=== PATIENT | male | born 1970 | race Hispanic/Latino ===

== ENCOUNTER 2018-06-14 01:35 | Inpatient (IN) | payer MEDICAID, OTHER ==
[2018-06-14] MEDS ORDERED: Sodium Chloride 0.9% 1,000 ML IV STA ×2 (01:46)
--- NOTE | 2018-06-14 02:01 | ED PDOC ---
Arrival/HPI - General Chief Complaint: Weakness/Neurological Deficit Time Seen by Provider: 06/14/18 01:46 Historian: Patient - History of Present Illness Narrative History of Present Illness (Text): 06/14/18 01:57 48 year old male, whose past medical history includes a diabetes and a pacemaker , who presents to the Emergency department complaining of an episode of numbness in the left arm today. Patient notes associated nausea, headache, and diarrhea. Patient denies any fevers, chills, chest pain, shortness of breath, abdominal pain, vomiting, back pain, neck pain, or any other complaint. Time/Duration: Other (today) Symptom Onset: Sudden Symptom Course: Unchanged Activities at Onset: Light Context: Home Past Medical History - Provider Review Nursing Documentation Reviewed: Yes - Psychiatric Hx Substance Use: No - Anesthesia Hx Anesthesia: Yes Family/Social History - Physician Review Nursing Documentation Reviewed: Yes Family/Social History: Unknown Family HX Smoking Status: Never Smoked Hx Alcohol Use: No Hx Substance Use: No Allergies/Home Meds Allergies/Adverse Reactions: Allergies No Known Allergies Allergy (Verified 06/14/18 01:45) Home Medications: Home Meds Medication Instructions Recorded Confirmed No Known Home Med 06/14/18 06/14/18 Review of Systems - Physician Review All systems were reviewed & negative as marked: Yes - Review of Systems Constitutional: Normal Eyes: Normal ENT: Normal Respiratory: Normal. absent: SOB, Cough Cardiovascular: Normal. absent: Chest Pain Gastrointestinal: Nausea. absent: Abdominal Pain, Diarrhea, Vomiting Genitourinary Male: Normal. absent: Dysuria, Frequency Musculoskeletal: Other (left arm numbness). absent: Back Pain, Neck Pain Skin: Normal. absent: Rash Neurological: Normal. absent: Headache, Dizziness Endocrine: Normal Hemo/Lymphatic: Normal Psychiatric: Normal Physical Exam - Physical Exam Narrative Physical Exam (Text): 06/14/18 02:00 Gen: VS reviewed, alert, well developed, well nourished, nontoxic, mild distress. ENT: normal pharynx. Eye: EOMI, PERRL. Neck: no JVD, supple, no adenopathy. CV: regular rate, regular rhythm, no rubs, no murmur, no gallops, S1, S2, pulses equal and strong. Pulm: no distress, clear to auscultation, no wheeze, no rhonchi, breath sounds equal, no rales. Abd: soft, nontender, no guarding, no rebound, no rigidity, normal bowel sounds. Ext: no edema. Skin: good color, no rash, no cyanosis. Psych: responds appropriately to questions, normal affect. Neuro: oriented x 3, CN2-12 intact grossly, motor intact, sensation intact. Vital Signs Reviewed: Yes Vital Signs Temp Pulse Resp BP Pulse Ox 06/14/18 02:51 88 12 155/81 H 100 06/14/18 01:44 98 F 87 16 156/81 H 99 Temperature: Afebrile Blood Pressure: Hypertensive Pulse: Regular Respiratory Rate: Normal Appearance: Positive for: Well-Appearing, Non-Toxic, Comfortable Pain Distress: None Mental Status: Positive for: Alert and Oriented X 3 Finger Stick Blood Glucose: 390 Medical Decision Making ED Course and Treatment: 06/14/18 02:01 Impression: 48 year old male presents to the ED complaining of left arm numbness today. Plan: -- EKG -- Labs -- Troponin -- CXR -- Sodium Chloride -- UA -- Reassess and disposition Progress Notes: 06/14/18 03:16 CT head reviewed, shows: Impression: No evidence of an acute intracranial hemorrhage, midline shift or mass effect is identified.Changes of an acute infarct may not be visible on CT for up to 24 to 48 hours. If this is of clinical concern, a follow up examination and/or MRI may be of benefit. 06/14/18 03:33 patient presents with multiple nonspecific complaints including transient numbness in the left arm without associated weakness. onset of left arm numbness was approx 7pm last night and only lasted 4-5 minutes. there were associated neuro deficits such as facial numbness or speech disturbance, or extremity weakness. As the patient had a delayed presentation to the ED, he was not a candidate for thrombolysis. patient has not been on diabetic medications for 2 months as the medications "make him feel bad". glucose is moderately elevated without metabolic disturbance. clinical presentation is not consistent with DKA. Will admit the patient to the hospital for glycemic control and neurologic workup. 06/14/18 04:30 admit accepted by hospitalist, dr. trivedi - Lab Interpretations Lab Results: 06/14/18 01:50 06/14/18 01:50 Lab Results 06/14/18 03:34: POC Glucose (mg/dL) 238 H 06/14/18 02:41: POC Glucose (mg/dL) 378 H 06/14/18 01:50: PT 10.4, INR 0.91, APTT 28.9 06/14/18 01:50: Sodium 135, Potassium 4.1, Chloride 98, Carbon Dioxide 25, Anion Gap 17, BUN 18, Creatinine 0.7 L, Est GFR ( Amer) > 60, Est GFR ( Non-Af Amer) > 60, Random Glucose 395 H*, Calcium 9.0, Magnesium 1.8, Total Bilirubin 0.6, AST 17, ALT 28, Alkaline Phosphatase 88, Troponin I < 0.01, Total Protein 6.9, Albumin 3.8, Globulin 3.1, Albumin/Globulin Ratio 1.3 06/14/18 01:50: WBC 12.6 H, RBC 4.83, Hgb 13.6 L, Hct 37.1 L, MCV 76.8 L, MCH 28.2, MCHC 36.7, RDW 12.7, Plt Count 195, MPV 11.0, Gran % 80.8 H, Lymph % (Auto ) 14.2 L, [place] % (Auto) 4.5, Eos % (Auto) 0.3 L, Baso % (Auto) 0.2, Gran # 10.17 H, Lymph # (Auto) 1.8, [place] # (Auto) 0.6, Eos # (Auto) 0.0, Baso # (Auto) 0.02 06/14/18 01:45: POC Glucose (mg/dL) 390 H - RAD Interpretation Radiology Orders: 06/14/18 01:48 CHEST PORTABLE [RAD] Stat 06/14/18 02:03 HEAD W/O CONTRAST [CT] Stat - EKG Interpretation EKG Interpretation (Text): 06/14/18 02:25 0147: sinus rhythm at 87 bpm, 100% electronic ventricular pacemaker Interpreted by ED Physician: Yes - Medication Orders Current Medication Orders: Discontinued Medications Acetaminophen (Tylenol 325mg Tab) 975 mg PO STAT STA Stop: 06/14/18 03:32 Aspirin (Ecotrin) 81 mg PO STAT STA Stop: 06/14/18 03:33 Sodium Chloride (Sodium Chloride 0.9%) 1,000 mls @ 999 mls/hr IV .Q1H1M STA Stop: 06/14/18 02:46 Last Admin: 06/14/18 01:50 Dose: 999 mls/hr eMAR Start Stop Document 06/14/18 01:50 JOL (Rec: 06/14/18 02:40 [id number] [id number]) Intravenous Solution Start Date 06/14/18 Start Time 01:50 End Date 06/14/18 End time 02:51 Total Infusion Time 61 Sodium Chloride (Sodium Chloride 0.9%) 1,000 mls @ 999 mls/hr IV .Q1H1M STA Stop: 06/14/18 02:46 Last Admin: 06/14/18 02:40 Dose: 999 mls/hr eMAR Start Stop Document 06/14/18 02:40 JOL (Rec: 06/14/18 02:40 [email or web address] [id number]) Intravenous Solution Start Date 06/14/18 Start Time 02:40 End Date 06/14/18 End time 03:41 Total Infusion Time 61 Insulin Human Regular (Humulin R) 10 units IVP STAT STA Stop: 06/14/18 02:33 Last Admin: 06/14/18 02:43 Dose: 8 unit MAR Blood Glucose Document 06/14/18 02:43 JOL (Rec: 06/14/18 02:43 JOL [id number]) Blood Glucose Finger Stick Blood Glucose (70-120) 378 IVP Administration Document 06/14/18 02:43 JOL (Rec: 06/14/18 02:43 JOL [id number]) Charges for Administration # of IVP Administrations 1 NIHSS Stroke Scale 3 - Date/Time Evaluation Performed Date Performed: 06/14/18 Time Performed: 03:33 When Was NIHSS Performed: Baseline - How Severe is the Stroke Level of Consciousness: 0=Alert LOC to Questions: 0=Both comments correct LOC to commands: 0=Obeys both correctly Best Gaze: 0=Normal Visual: 0=No visual loss Facial: 0=Normal Motor Arm - Left: 0=No drift Motor Arm - Right: 0=No drift Motor Leg - Left: 0=No drift Motor Leg - Right: 0=No drift Limb Ataxia: 0=Absent Sensory: 0=Normal Best Language: 0=No aphasia Dysarthia: 0=Normal articulation Extinction & Inattention (Neglect): 0=Normal, no object Score: 0 - Scribe Statement The provider has reviewed the documentation as recorded by the Scribelia Hardy All medical record entries made by the Scribe were at my direction and personally dictated by me. I have reviewed the chart and agree that the record accurately reflects my personal performance of the history, physical exam, medical decision making, and the department course for this patient. I have also personally directed, reviewed, and agree with the discharge instructions and disposition. Disposition/Present on Arrival - Present on Arrival Any Indicators Present on Arrival: No History of DVT/PE: No History of Uncontrolled Diabetes: No Urinary Catheter: No History of Decub. Ulcer: No History Surgical Site Infection Following: None - Disposition Have Diagnosis and Disposition been Completed?: Yes Diagnosis: TIA (transient ischemic attack), Hyperglycemia Disposition: HOSPITALIZED Disposition Time: 04:30 Patient Plan: Telemetry Condition: STABLE Forms: [employer] (Cameroonian)
[2018-06-14 02:25] LABS: BASO # 0.02 K/mm3 (0.0-2.0); BASO % 0.2 % (0.0-3.0); EOS % 0.3 % (1.5-5.0); GRAN # 10.17 (1.4-6.5); GRAN % 80.8 % (50.0-68.0); HEMOGLOBIN 13.6 g/dL (14.0-18.0); LYMPH # 1.8 (1.2-3.4); LYMPH % 14.2 % (22.0-35.0); MEAN CELL VOLUME 76.8 fl (80.0-105.0); MEAN CORPUSCULAR HEMOGLOBIN 28.2 pg (25.0-35.0); MEAN CORPUSCULAR HGB CONC 36.7 g/dl (31.0-37.0); MONO # 0.6 (0.1-0.6); MONO % 4.5 % (1.0-6.0); RBC 4.83 10^6/uL (3.5-6.1); RED CELL DISTRIBUTION WIDTH 12.7 % (11.5-14.5); WHITE BLOOD COUNT 12.6 10^3/ul (4.5-11.0)
[2018-06-14 02:27] LABS: INR 0.91; PARTIAL THROMBOPLASTIN TIME 28.9 Seconds (25.1-36.5); PROTHROMBIN TIME 10.4 SECONDS (9.4-12.5)
[2018-06-14 02:30] LABS: ALB/GLOB RATIO 1.3 (1.1-1.8); ALBUMIN 3.8 g/dL (3.0-4.8); ALT/SGPT 28 U/L (7-56); AST/SGOT 17 U/L (17-59); BLOOD UREA NITROGEN 18 mg/dL (7-21); GFR NON-AFRICAN AMERICAN > 60
[2018-06-14] MEDS ORDERED: Insulin Regular 1 UNITS/0.01 ML ML IVP STA (02:32)
[2018-06-14 02:39] LABS: TROPONIN I < 0.01 ng/mL
--- NOTE | 2018-06-14 05:26 | CP.PCM.HP ---
History of Present Illness - History of Present Illness History of Present Illness: Gerardo Thorpe, PGY-1 History and Physical for Hospitalist Service CC: Numbness in L hand HPI: Mr. Solares is a 48 year old male with PMHx of diabetes, high cholesterol and pacemaker placement who presents with L hand numbness since 7 pm the night before. Patient describes frequent feelings of pins and needles in the extremities in the past, but this episode felt more pronounced and has been sustained. Patient also reports headache and mild nausea and mild L sided facial numbness. Patient reports radiation into upper arm, but denies chest pain , jaw pain, fevers, chills, or diaphoresis. Patient said lying down did not relieve pain. Patient reports he has not taken his diabetes or cholesterol medication in 3-4 months because the medications made him feel groggy and he felt better without them. Patient has not checked his sugars over that time as well. Patient reports chronic pain in his lower extremities that causes him to wear socks at all time because it is too painful to walk and have his feet touch the bare floor. Patient reports eating whatever he would like. Patient reports blurry vision which has worsened overnight. Patient has not seen an analysis intern in years and patient does not regularly see his PCP or an zyglo inspector for diabetes management. Patient reports always being thirsty and drinking lots of fluids. Patient also reports frequency of urination throughout day and night. Patient reports Patient denies sore throat, dizziness, shortness of breath, palpitations, recent travel, sick contacts. PMHx: DM not on meds, hypercholesterolemia not on meds, pacemaker placement in 08/07 at [facility] s/p bradycardia PSHx: R shoulder surgery All; NKDA Social: Quit 5 years ago. Smoked 2.5 paks per day for 30 years previously. Denies ETOH and IVDU. 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 Gaxiola ([facility]) Director Of Catering : Dr. Allan ([facility]) Present on Admission - Present on Admission Any Indicators Present on Admission: Yes History of Uncontrolled Diabetes: Yes Review of Systems - Review of Systems Review of Systems: 12 point ROS completed and negative except as described in HPI. Past Patient History - Past Social History Smoking Status: Never Smoked - PSYCHIATRIC Hx Substance Use: No - SURGICAL HISTORY Hx Surgeries: No - ANESTHESIA Hx Anesthesia: Yes Meds Allergies/Adverse Reactions: Allergies Allergy/AdvReac Type Severity Reaction Status Date / Time No Known Allergies Allergy Verified 06/14/18 01:45 Physical Exam - Constitutional Appears: Well, Non-toxic, No Acute Distress, Older Than Stated Age Additional comments: Very mild discomfort - Head Exam Head Exam: ATRAUMATIC, NORMAL INSPECTION, NORMOCEPHALIC - Eye Exam Eye Exam: EOMI, Normal appearance Pupil Exam: PERRL - ENT Exam ENT Exam: Mucous Membranes Moist, Normal Exam - Neck Exam Neck exam: Positive for: Full Rom, Normal Inspection. Negative for: Lymphadenopathy - Respiratory Exam Respiratory Exam: Clear to Auscultation Bilateral, NORMAL BREATHING PATTERN. absent: Accessory Muscle Use, Chest Wall Tenderness, Decreased Breath Sounds, Rales, Rhonchi, Wheezes, Respiratory Distress, Stridor - Cardiovascular Exam Cardiovascular Exam: RRR, +S1, +S2 Additional comments: R ventricular pacemaker in place in R upper chest - GI/Abdominal Exam GI & Abdominal Exam: Normal Bowel Sounds, Soft. absent: Distended, Guarding, Rebound, Tenderness - Extremities Exam Extremities exam: Positive for: tenderness (on feet upon palpation. No ulcers noted.). Negative for: calf tenderness, joint swelling - Back Exam Back exam: NORMAL INSPECTION. absent: CVA tenderness (L), CVA tenderness (R), muscle spasm, paraspinal tenderness, rash noted - Neurological Exam Neurological exam: Alert, Normal Gait, Oriented x3 - Psychiatric Exam Psychiatric exam: Flat Affect - Skin Skin Exam: Dry, Intact, Normal Color, Warm Results - Vital Signs Recent Vital Signs: Last Vital Signs Temp 98 F 06/14/18 01:44 Pulse 98 H 06/14/18 04:00 Resp 14 06/14/18 04:00 BP 150/72 06/14/18 04:00 Pulse Ox 99 06/14/18 04:00 - Labs Result Diagrams: 06/14/18 01:50 06/14/18 01:50 Assessment & Plan - Assessment and Plan (Free Text) Assessment: Assessment: Mr. 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 Plan: Diabetic neuropathy 2/2 Uncontrolled Diabetes and medication non-compliance f/u a1c and lipid panel 395 upon admission, 238 on POC check accu checks achs ISS low, consider increase based on a1c HHD R/O TIA CT head w/o contrast: No evidence of an acute intracranial hemorrhage, midline shift or mass effect is identified EKG: sinus rhythm at 87 bpm, electronic ventricular pacemaker Trop neg x1 Neuro checks q4h Passed nursing bedside evaluation, HHD f/u TSH f/u carotid ultrasound and echocardiogram Neurology consult placed (Dr. Juares) - recommendations appreciated f/u lipid panel ASA 81 mg PO NIHSS Leukocytosis WBC 12.6 afebrile f/u CXR and UA will continue to monitor for any source of infection f/u AM lab HTN Permissive HTN until stroke is ruled out continue to monitor Hydralazine 10 mg to be given if systolic > 160 Pacemaker placement / ? bradycardia No medications at home Placed 08/07 at [facility] f/u medical records at [facility] for etiology and further history Hypercholesterolemia F/u lipid panel Atorvastatin 20 mg PO DVT ppx SCDs Lovenox 40 mg SC GI prophylaxis not indicated Patient seen, case reviewed, and plan discussed with Dr. Coyle. Gerardo Thorpe, PGY-1
[2018-06-14 06:02] LABS: PH,URINE 6.5 (4.7-8.0); URINE BILIRUBIN NEGATIVE (NEGATIVE); URINE BLOOD TRACE-LYSED (NEGATIVE); URINE GLUCOSE (UA) >=1000 mg/dL (NEGATIVE); URINE LEUKOCYTE ESTERASE NEGATIVE Leu/uL (NEGATIVE); URINE PROTEIN 100 mg/dL (<30 mg/dL); URINE UROBILINOGEN 0.2 E.U./dL (<1 E.U./dL)
[2018-06-14 06:04] LABS: URINE APPEARANCE CLEAR (CLEAR); URINE COLOR LIGHT YELLOW (YELLOW)
[2018-06-14 06:13] LABS: URINE BACTERIA OCC (NEG); URINE EPITHELIAL CELLS 0 - 2 /hpf (0-5); URINE RBC 0 - 2 /hpf (0-2); URINE WBC 0 - 2 /hpf (0-6)
[2018-06-14 06:41] LABS: BASO # 0.02 K/mm3 (0.0-2.0); BASO % 0.2 % (0.0-3.0); EOS % 0.1 % (1.5-5.0); GRAN # 8.97 (1.4-6.5); GRAN % 83.2 % (50.0-68.0); HEMOGLOBIN 12.8 g/dL (14.0-18.0); LYMPH # 1.4 (1.2-3.4); MEAN CELL VOLUME 76.8 fl (80.0-105.0); MEAN CORPUSCULAR HEMOGLOBIN 27.7 pg (25.0-35.0); MEAN CORPUSCULAR HGB CONC 36.1 g/dl (31.0-37.0); MEAN PLATELET VOLUME 10.3 fl (7.0-11.0); MONO # 0.4 (0.1-0.6); MONO % 3.5 % (1.0-6.0); RBC 4.62 10^6/uL (3.5-6.1); RED CELL DISTRIBUTION WIDTH 12.7 % (11.5-14.5); WHITE BLOOD COUNT 10.8 10^3/ul (4.5-11.0)
[2018-06-14 06:55] LABS: ALB/GLOB RATIO 1.2 (1.1-1.8); ALBUMIN 3.3 g/dL (3.0-4.8); ALT/SGPT 27 U/L (7-56); AST/SGOT 14 U/L (17-59); BLOOD UREA NITROGEN 17 mg/dL (7-21); CALCIUM 8.3 mg/dL (8.4-10.5); GFR NON-AFRICAN AMERICAN > 60
[2018-06-14] MEDS ORDERED: Insulin Lispro (humaLOG) LOW Coverage SC SCH (07:30)
[2018-06-14] MEDS ORDERED: Insulin Regular 1 UNITS/0.01 ML ML ONE (07:34)
[2018-06-14 08:04] LABS: HDL CHOLESTEROL 35 mg/dL (29-60)
[2018-06-14 08:15] LABS: LDL CHOLESTEROL 188 mg/dL (0-129)
--- NOTE | 2018-06-14 08:18 | CT ---
Date of service: 06/14/2018 PROCEDURE: CT HEAD WITHOUT CONTRAST. HISTORY: numbness COMPARISON: None available. TECHNIQUE: Axial computed tomography images were obtained through the head/brain without intravenous contrast. Radiation dose: Total exam DLP = 955 mGy-cm. This CT exam was performed using one or more of the following dose reduction techniques: Automated exposure control, adjustment of the mA and/or kV according to patient size, and/or use of iterative reconstruction technique. FINDINGS: HEMORRHAGE: No intracranial hemorrhage. BRAIN: No mass effect or edema. No atrophy or chronic microvascular ischemic changes. VENTRICLES: Unremarkable. No hydrocephalus. CALVARIUM: Unremarkable. PARANASAL SINUSES: Unremarkable as visualized. No significant inflammatory changes. MASTOID AIR CELLS: Unremarkable as visualized. No inflammatory changes. OTHER FINDINGS: The report concurs with the preliminary [facility] report IMPRESSION: No acute findings
[2018-06-14 08:44] VITALS: BMI 26.4
--- NOTE | 2018-06-14 08:44 | RAD ---
Date of service: 06/14/2018 HISTORY: pneumonia COMPARISON: No prior. FINDINGS: LUNGS: The lungs are well inflated and clear. PLEURA: No significant pleural effusion identified, no pneumothorax apparent. CARDIOVASCULAR: There is mild cardiomegaly. There is a right-sided dual lead transvenous permanent pacing device. OSSEOUS STRUCTURES: No significant abnormalities. VISUALIZED UPPER ABDOMEN: Normal. OTHER FINDINGS: None. IMPRESSION: No active pulmonary disease.
--- NOTE | 2018-06-14 09:43 | CT ---
PROCEDURE: CTA HEAD AND NECK WITH CONTRAST HISTORY: hand numbness COMPARISON: None available. TECHNIQUE: Initial noncontrast head CT was performed. Subsequently, CT angiogram of the head and neck were performed after the intravenous administration of 80 mL of Omnipaque 350. Contiguous 1.5mm thick images were obtained in the axial plane of the neck. 2-D coronal and sagittal MPR images were obtained. Imaging postprocessing was performed with 3-D images also obtained. A delayed contrast head CT was also obtained. This CT exam was performed using one or more of the following dose reduction techniques: Automated exposure control, adjustment of the mA and/or kV according to patient size, and/or use of iterative reconstruction technique. Contrast dose: 150 mL Omnipaque 350 Radiation dose: Total exam DLP = 554.60 mGy-cm. FINDINGS: HEAD: Right: The intracranial internal carotid artery, and anterior and middle cerebral arteries are widely patent. There are atherosclerotic calcifications in the distal petrous segment, cavernous carotid and supraclinoid segments and and mild eccentric soft plaque with mild luminal narrowing. Left: The intracranial internal carotid artery, and anterior and middle cerebral arteries are widely patent. Mild atherosclerotic calcifications in the cavernous carotid artery without significant luminal narrowing. Posterior circulation: The visualized intracranial vertebral arteries, basilar artery and posterior cerebral arteries are widely patent. There are coarse atherosclerotic calcifications in the left vertebral artery There is no endoluminal filling defect to suggest thrombus. There is no intracranial saccular aneurysm. NECK: There is a two vessel aortic arch. There is segmental circumferential mural thrombus at the origin and in the proximal subclavian artery with mild to moderate luminal narrowing. There is no stenosis at the origins of the great vessels at the level of the aortic arch. Right Carotid: On the right, the common carotid, internal carotid and external carotid arteries are widely patent. There is no hemodynamically significant stenosis in the internal carotid artery by NASCET criteria. Left Carotid: On the left, the common carotid, internal carotid and external carotid arteries are widely patent.There is no hemodynamically significant stenosis in the internal carotid arteries. Mild atherosclerotic calcifications in the carotid bulb. There is no hemodynamically significant stenosis in the internal carotid artery by NASCET criteria. The vertebral arteries are widely patent. The right vertebral artery is hypoplastic, an anatomic variant. The visualized soft tissues of the neck are normal. The visualized brain and cervical spine are within normal limits. The lung apices are clear. There is a low-density nodule in the upper pole of the right thyroid lobe. IMPRESSION: 1. No evidence of endoluminal thrombus or occlusion. Atherosclerotic calcifications in the distal Peter segment, cavernous carotid and supraclinoid right ICA with mild luminal narrowing. 2. No evidence of hemodynamically significant stenosis in the internal carotid arteries. 3. Patent bilateral vertebral arteries. The right vertebral artery is hypoplastic, an anatomic variant. 4. Circumferential mural thrombus at the origin and in the proximal left subclavian artery with mild luminal narrowing. 5. Solitary nodule in the upper pole of the right thyroid lobe. Dedicated thyroid ultrasound is recommended for further characterization.
[2018-06-14] MEDS: Enoxaparin 40 mg Syringe SC SCH (09:58)
--- NOTE | 2018-06-14 10:37 | CP.PCM.CON ---
History of Present Illness - History of Present Illness History of Present Illness: Gaurav Gina PGY2 Neurology Consult Note for Dr. Juares Mr. Solares is a 48 year old male with PMH of diabetes, HLD and pacemaker placement for bradycardia who presented with left hand and forearm numbness for several hours; he states that he was also constipated and bearing down to have a bowel movement which caused him to have a headache. Patient is currently asymptomatic. Neurology is consulted to r/o TIA. The patient states that in the past he has had intermittent episodes of numbness and tingling in both his upper and lower extremities for more than 1 year. He reports that in that time , he has also had headaches, and episodes of blurry vision. He was started on metformin by his PMD, however, the patient has not been taking the medication due to it making him feel nauseous and groggy. He has not taken his medications in 3-4 months, and has not been checking his fingersticks, seeing a vehicle cost engineer/electronics research engineer or any other physicians in that same time. He also states that he has not been complying with a heart healthy or low sugar diet. He denies focal weaknesses, chest pain, shortness of breath, dizziness or changes in hearing, fevers/chills, nausea/vomiting. 12-pt ROS was reviewed and is otherwise unremarkable. PMD: Dr. Gaxiola ([facility] [place] Supervisor [place] : Dr. Allan ([facility] [place]) PMHx: DM (non-compliant with meds or diet), HLD, pacemaker placement in 07/2014 at [facility] [place] s/p bradycardia PSHx: R shoulder surgery Meds: not compliant All; NKDA SHx: Quit 5 years ago. Smoked 2.5 ppd for 30 years previously. Denies ETOH and drug use. 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 FHx: DM2 runs in the family, recent of cousin due to [place] Review of Systems - Review of Systems All systems: reviewed and no additional remarkable complaints except (as per HPI ) Past Patient History - Past Medical History & Family History Past Medical History?: Yes Pertinent Family History: as stated in HPI - Past Social History Smoking Status: Former Smoker Alcohol: None Drugs: Denies Home Situation {Lives}: With Family - CARDIAC Hx Hypercholesterolemia: Yes Hx Pacemaker: Yes - PULMONARY Hx Respiratory Disorders: No - NEUROLOGICAL Hx Neurological Disorder: No - HEENT Hx HEENT Problems: No Other/Comment: Blurry Vision - RENAL Hx Chronic Kidney Disease: No - ENDOCRINE/METABOLIC Hx Diabetes Mellitus Type 2: Yes - HEMATOLOGICAL/ONCOLOGICAL Hx Blood Disorders: No - INTEGUMENTARY Hx Dermatological Problems: No - MUSCULOSKELETAL/RHEUMATOLOGICAL Hx Arthritis: Yes Hx Falls: No - GASTROINTESTINAL Hx Gastrointestinal Disorders: No - GENITOURINARY/GYNECOLOGICAL Hx Genitourinary Disorders: No - PSYCHIATRIC Hx Psychophysiologic Disorder: No Hx Substance Use: No - SURGICAL HISTORY Hx Surgeries: Yes Hx Orthopedic Surgery: Yes (Right Shoulder) - ANESTHESIA Hx Anesthesia: Yes Meds Allergies/Adverse Reactions: Allergies Allergy/AdvReac Type Severity Reaction Status Date / Time No Known Allergies Allergy Verified 06/14/18 01:45 - Medications Medications: Current Medications Acetaminophen (Tylenol 325mg Tab) 650 mg PO Q6H PRN PRN Reason: Pain, Mild (1-3) Aspirin (Ecotrin) 81 mg PO DAILY [facility] Atorvastatin Calcium (Lipitor) 40 mg PO DIN [facility] Enoxaparin Sodium (Lovenox) 40 mg SC DAILY [facility] PRN Reason: Protocol Last Admin: 06/14/18 09:58 Dose: 40 mg Insulin Human Lispro (Humalog Med) 0 units SC ACHS [facility] PRN Reason: Protocol Physical Exam - Constitutional Appears: Well, Non-toxic, No Acute Distress - Head Exam Head Exam: NORMAL INSPECTION - Eye Exam Eye Exam: EOMI, Normal appearance, PERRL - ENT Exam ENT Exam: Mucous Membranes Moist - Neck Exam Neck exam: Positive for: Full Rom, Normal Inspection. Negative for: Tenderness - Respiratory Exam Respiratory Exam: NORMAL BREATHING PATTERN. absent: Rales, Rhonchi, Wheezes - Cardiovascular Exam Cardiovascular Exam: RRR, +S1, +S2 - GI/Abdominal Exam GI & Abdominal Exam: Normal Bowel Sounds, Soft. absent: Distended, Tenderness - Extremities Exam Extremities exam: Positive for: full ROM, normal inspection. Negative for: pedal edema, tenderness Additional comments: not foot ulcers noted - Back Exam Back exam: NORMAL INSPECTION - Neurological Exam Neurological exam: Alert, CN II-XII Intact, Oriented x3 Additional comments: brisk reflexes in RLE no dysmetria or dysarthria noted no facial asymmetry or sensory/motor facial asymmetry muscle strength 5/5 x4 extremities - Psychiatric Exam Psychiatric exam: Normal Mood - Skin Skin Exam: Normal Color Results - Vital Signs Recent Vital Signs: Last Vital Signs Temp 98.6 F 06/14/18 08:33 Pulse 92 H 06/14/18 08:33 Resp 17 06/14/18 08:33 BP 155/78 H 06/14/18 08:33 Pulse Ox 97 06/14/18 06:00 - Labs Result Diagrams: 06/14/18 06:10 06/14/18 06:10 Labs: Laboratory Results - last 24 hr 06/14/18 06/14/18 06/14/18 05:30 06:10 06:10 WBC RBC Hgb Hct MCV MCH MCHC RDW Plt Count MPV Gran % Lymph % (Auto) [place] % (Auto) Eos % (Auto) Baso % (Auto) Gran # Lymph # (Auto) [place] # (Auto) Eos # (Auto) Baso # (Auto) Sodium 135 Potassium 4.0 Chloride 103 Carbon Dioxide 20 L Anion Gap 16 BUN 17 Creatinine 0.6 L Est GFR ( Amer) > 60 Est GFR (Non-Af Amer) > 60 Random Glucose 298 H Calcium 8.3 L Phosphorus 3.3 Magnesium 1.8 Total Bilirubin 0.5 AST 14 L ALT 27 Alkaline Phosphatase 74 Total Protein 6.2 Albumin 3.3 Globulin 2.8 Albumin/Globulin Ratio 1.2 Triglycerides Cholesterol LDL Cholesterol Direct HDL Cholesterol TSH 3rd Generation 0.45 L Urine Color Light yellow Urine Appearance Clear Urine pH 6.5 Ur Specific [place] 1.020 Urine Protein 100 H Urine Glucose (UA) >=1000 Urine Ketones 40 H Urine Blood Trace-lysed H Urine Nitrate Negative Urine Bilirubin Negative Urine Urobilinogen 0.2 Ur Leukocyte Esterase Negative Urine RBC 0 - 2 Urine WBC 0 - 2 Ur Epithelial Cells 0 - 2 Urine Bacteria Occ 06/14/18 06/14/18 06:10 06:10 WBC 10.8 RBC 4.62 Hgb 12.8 L Hct 35.5 L MCV 76.8 L MCH 27.7 MCHC 36.1 RDW 12.7 Plt Count 184 MPV 10.3 Gran % 83.2 H Lymph % (Auto) 13.0 L [place] % (Auto) 3.5 Eos % (Auto) 0.1 L Baso % (Auto) 0.2 Gran # 8.97 H Lymph # (Auto) 1.4 [place] # (Auto) 0.4 Eos # (Auto) 0.0 Baso # (Auto) 0.02 Sodium Potassium Chloride Carbon Dioxide Anion Gap BUN Creatinine Est GFR ( Amer) Est GFR (Non-Af Amer) Random Glucose Calcium Phosphorus Magnesium Total Bilirubin AST ALT Alkaline Phosphatase Total Protein Albumin Globulin Albumin/Globulin Ratio Triglycerides 122 Cholesterol 261 H LDL Cholesterol Direct 188 H HDL Cholesterol 35 TSH 3rd Generation Urine Color Urine Appearance Urine pH Ur Specific [place] Urine Protein Urine Glucose (UA) Urine Ketones Urine Blood Urine Nitrate Urine Bilirubin Urine Urobilinogen Ur Leukocyte Esterase Urine RBC Urine WBC Ur Epithelial Cells Urine Bacteria Assessment & Plan - Assessment and Plan (Free Text) Assessment: 48 year old male with PMH of diabetes, noncompliant with meds, HLD and pacemaker placement for bradycardia who presented with left hand and forearm numbness, and a headache/blurry vision for several hours. Symptoms have now resolved. Symptoms likely due to peripheral neuropathy vs mononeuritis multiplex given asymmetry and hx non-compliance with diabetic medications. Patient is also at risk for CVA and heart disease given poorly controlled DM2. HLD is noted as well. Plan: - CTA head/neck showed no evidence of hemodynamically significant stenosis in ICA, but showed circumferential mural thrombus in origin and proximal left subclavian artery with mild luminal narrowing. - recommend Cardio consult for evaluation of subclavian artery thrombus - CT head was unremarkable - MRI evaluation of brain is warranted, but not available for pts w/ pacemakers at [facility] [place] - Echo done, pending official read - A1c 11.9 - start ASA 81mg daily and Plavix daily - high intensity statin started, Lipitor 40mg daily, given lipid panel results - strict glycemic control - diabetic education - PT eval pending - further recs per Dr. Juares Case was reviewed and discussed with Dr. Mor Fuentes PGY2
--- NOTE | 2018-06-14 11:32 | CARD ---
APPROVED REPORT Date of service: 06/14/2018 EKG Measurement Heart [id number] <Conclusion> Atrial sensed, ventricular paced rhythm
[2018-06-14 12:54] LABS: FOLATE 15.1 ng/mL
[2018-06-14] MEDS: Insulin Lispro (humaLOG) MEDIUM Coverage SC SCH ×3 (13:02→21:46)
--- NOTE | 2018-06-14 16:54 | CARD ---
APPROVED REPORT Date of service: 06/14/2018 EXAM: Two-dimensional and M-mode echocardiogram with Doppler and color Doppler. INDICATION ? THROMBUS ORIGIN TO R/O TIA 2D DIMENSIONS Left Atrium (2D)5.6 (1.6-4.0cm)IVSd1.5 (0.7-1.1cm) LVDd5.9 (3.9-5.9cm)PWd1.2 (0.7-1.1cm) LVDs5.2 (2.5-4.0cm)FS (%) 12.5 % LVEF (%)26.3 (>50%) M-Mode DIMENSIONS Aortic Root3.80 (2.2-3.7cm)Aortic Cusp Exc.2.00 (1.5-2.0cm) Aortic Valve AoV Peak Biepgtep608.0cm/Krysten Peak GR.8mmHg Mitral Valve E/A ratio0.0 TDI E/Lateral E'0.0E/Medial E'0.0 Pulmonary Valve PV Peak Gdmtehli30.1cm/sPV Peak Grad.2mmHg Tricuspid Valve TR Peak [id number] [id number] Peak Gr.17mmHg [id number] LEFT VENTRICLE The Left Ventricle is borderline dilated. There is mild concentric left ventricular hypertrophy. The systolic function is severely impaired. Apical motion consistent with pacemaker activation. Transmitral Doppler flow pattern is Grade I-abnormal relaxation pattern. No left ventricle thrombus noted on this study. RIGHT VENTRICLE The right ventricle is normal size. There is normal right ventricular wall thickness. The right ventricular systolic function is normal. ATRIA The left atrium is moderately dilated. The right atrium is mildly dilated. AORTIC VALVE The aortic valve is moderately thickened. There is trace aortic regurgitation. MITRAL VALVE The mitral valve is mildly thickened. Mitral regurgitation is trace. TRICUSPID VALVE The tricuspid valve is normal in structure. There is trace tricuspid regurgitation. PULMONIC VALVE The pulmonary valve is normal in structure. There is trace pulmonic valvular regurgitation. GREAT VESSELS The aortic root is normal in size. The IVC is normal in size and collapses >50% with inspiration. <Conclusion> The Left Ventricle is borderline dilated. There is mild concentric left ventricular hypertrophy. The systolic function is severely impaired. Apical motion consistent with pacemaker activation. Transmitral Doppler flow pattern is Grade I-abnormal relaxation pattern. No left ventricle thrombus noted on this study. The left atrium is moderately dilated.
[2018-06-15 06:28] LABS: BASO # 0.02 K/mm3 (0.0-2.0); BASO % 0.3 % (0.0-3.0); EOS # 0.1 (0.0-0.7); EOS % 0.7 % (1.5-5.0); GRAN # 4.49 (1.4-6.5); GRAN % 61.5 % (50.0-68.0); HEMOGLOBIN 12.9 g/dL (14.0-18.0); LYMPH # 2.4 (1.2-3.4); LYMPH % 32.3 % (22.0-35.0); MEAN CELL VOLUME 77.2 fl (80.0-105.0); MEAN CORPUSCULAR HEMOGLOBIN 27.5 pg (25.0-35.0); MEAN CORPUSCULAR HGB CONC 35.6 g/dl (31.0-37.0); MEAN PLATELET VOLUME 10.4 fl (7.0-11.0); MONO # 0.4 (0.1-0.6); MONO % 5.2 % (1.0-6.0); RBC 4.69 10^6/uL (3.5-6.1); RED CELL DISTRIBUTION WIDTH 12.9 % (11.5-14.5); WHITE BLOOD COUNT 7.3 10^3/ul (4.5-11.0)
[2018-06-15 06:52] LABS: ALB/GLOB RATIO 1.1 (1.1-1.8); ALBUMIN 3.2 g/dL (3.0-4.8); ALT/SGPT 24 U/L (7-56); AST/SGOT 17 U/L (17-59); BLOOD UREA NITROGEN 8 mg/dL (7-21); CALCIUM 8.5 mg/dL (8.4-10.5); GFR NON-AFRICAN AMERICAN > 60
--- NOTE | 2018-06-15 07:07 | CP.PCM.PN ---
Addendum entered and electronically signed by King Walker DO 06/16/18 13:50 : Assessment Should Read; Instead of Stroke r/o as below ACUTE CVA; Intial CT head w/o contrast: No evidence of an acute intracranial hemorrhage, midline shift or mass effect is identified Repeat CT - Subacute infarct in R parietal lobe measuring 2cm CTA Head - R ICA w/ mild luminal narrowing, Solitary nodule in upper pole of R thyroid lobe, Thrombus in L subclavian artery EKG: sinus rhythm at 87 bpm, electronic ventricular pacemaker On ASA 81, and Plavix 75 Neurology consulted, appreciate reccs -King Walker DO Original Note: <King Walker - Last Filed: 06/15/18 18:02> Subjective - Date & Time of Evaluation Date of Evaluation: 06/15/18 Time of Evaluation: 06:59 - Subjective Subjective: King Walker DO PGY1 - Internal Medicine [employer] Manager - Hospital Progress Note Seen and examined at bedside, reported some headache overnight which resolved w / tylenol. Denies any further numbness/tingling within the upper extremity. Patient was notified of CTA results this morning. Remainder of 12 system ROS is negative at this time. Objective - Vital Signs/Intake and Output Vital Signs (last 24 hours): Temp Pulse Resp BP Pulse Ox 97.0 F L 70 20 139/81 98 06/15/18 06:00 06/15/18 06:00 06/15/18 06:00 06/15/18 06:00 06/15/18 06:00 Intake and Output: 06/14/18 06/15/18 18:59 06:59 Intake Total 1210 Output Total 400 Balance 810 - Medications Medications: Current Medications Acetaminophen (Tylenol 325mg Tab) 650 mg PO Q6H PRN PRN Reason: Pain, Mild (1-3) Last Admin: 06/14/18 19:42 Dose: 650 mg Aspirin (Ecotrin) 81 mg PO DAILY [facility] Atorvastatin Calcium (Lipitor) 40 mg PO DIN [facility] Last Admin: 06/14/18 16:05 Dose: 40 mg Clopidogrel Bisulfate (Plavix) 75 mg PO DAILY [facility] Last Admin: 06/14/18 16:05 Dose: 75 mg Enoxaparin Sodium (Lovenox) 40 mg SC DAILY [facility] PRN Reason: Protocol Last Admin: 06/14/18 09:58 Dose: 40 mg Insulin Human Lispro (Humalog Med) 0 units SC ACHS [facility] PRN Reason: Protocol Last Admin: 06/14/18 21:46 Dose: Not Given - Labs Labs: 06/15/18 05:40 06/15/18 05:40 PT 10.4 SECONDS (9.4-12.5) 06/14/18 01:50 INR 0.91 06/14/18 01:50 APTT 28.9 Seconds (25.1-36.5) 06/14/18 01:50 - Constitutional Appears: Well, Non-toxic, No Acute Distress - Head Exam Head Exam: ATRAUMATIC, NORMOCEPHALIC - Eye Exam Eye Exam: EOMI, Normal appearance, PERRL - ENT Exam ENT Exam: Mucous Membranes Moist - Respiratory Exam Respiratory Exam: Clear to Ausculation Bilateral, NORMAL BREATHING PATTERN. absent: Rales, Rhonchi, Wheezes, Respiratory Distress - Cardiovascular Exam Cardiovascular Exam: REGULAR RHYTHM, RRR. absent: Murmur - GI/Abdominal Exam GI & Abdominal Exam: Soft, Normal Bowel Sounds. absent: Tenderness - Extremities Exam Extremities Exam: Full ROM, Normal Capillary Refill, Normal Inspection - Back Exam Back Exam: absent: CVA tenderness (L), CVA tenderness (R) - Neurological Exam Neurological Exam: Alert, Awake, CN II-XII Intact Neuro motor strength exam: Left Upper Extremity: 5, Right Upper Extremity: 5, Left Lower Extremity: 5, Right Lower Extremity: 5 - Psychiatric Exam Psychiatric exam: Normal Affect, Normal Mood - Skin Skin Exam: Dry, Intact, Normal Color, Warm Assessment and Plan - Assessment and Plan (Free Text) Assessment: 48 year old Male with a PMHX of uncontrolled diabetes, high cholesterol and pacemaker placement for presumed bradycardia who presentes with diabetic neuropathy and medication noncompliance. Plan: New onset HFrEF - EF 26% Losartan 12.5 QD Carvedilol 3.125 BID Spironolactone 12.5 BID Cardiology Following Mural Thrombus - L subclavian artery Seen on CTAP Lovenox 70 BID Cardiology Following IR Consulted Uncontrolled DM w/ Neuropathy A1C: 11.9 AM Glucose 251; POC: 200-390 Started Levemir 10 HS C/w ISS Medium accu checks achs HHD + Carb Control Stroke/ TIA R/O - No CVA CT head w/o contrast: No evidence of an acute intracranial hemorrhage, midline shift or mass effect is identified Repeat CT Head also w/o any signs of subacute CVA CTA Head - R ICA w/ mild luminal narrowing, Solitary nodule in upper pole of R thyroid lobe, Thrombus in L subclavian artery EKG: sinus rhythm at 87 bpm, electronic ventricular pacemaker Neurology consulted, appreciate reccs Pacemaker placement 11/26 ? bradycardia No medications at home Placed 08/07 at [facility] f/u medical records at [facility] for etiology and further history Hypercholesterolemia Elevated Total Cholesterol and LDL Atorvastatin 40 mg PO R thyroid Nodule Follow up as outpt Leukocytosis- Resolved DVT ppx SCDs Lovenox 40 mg SC GI prophylaxis not indicated Patietn was seen, examined, and discussed w/ attenidng physician Dr. Ramona Walker DO PGY1- Internal Medicine [employer] - Pager [phone] <Ramona Walker R - Last Filed: 06/17/18 21:05> Objective - Vital Signs/Intake and Output Vital Signs (last 24 hours): Temp Pulse Resp BP Pulse Ox 98.5 F 105 H 17 134/94 H 98 06/17/18 18:00 06/17/18 18:00 06/17/18 18:00 06/17/18 18:00 06/17/18 18:00 Intake and Output: 06/17/18 06/18/18 18:59 06:59 Intake Total 720 Balance 720 - Medications Medications: Current Medications Acetaminophen (Tylenol 325mg Tab) 650 mg PO Q6H PRN PRN Reason: Pain, Mild (1-3) Last Admin: 06/14/18 19:42 Dose: 650 mg Atorvastatin Calcium (Lipitor) 40 mg PO DIN [facility] Last Admin: 06/17/18 17:05 Dose: 40 mg Carvedilol (Coreg) 3.125 mg PO BID [facility] Last Admin: 06/17/18 17:05 Dose: 3.125 mg Enoxaparin Sodium (Lovenox) 70 mg SC BID [facility] Last Admin: 06/17/18 17:06 Dose: 70 mg Insulin Detemir (Levemir) 15 unit SC HS [facility] Last Admin: 06/16/18 22:26 Dose: 15 units Insulin Human Regular (Humulin R High) 0 units SC ACHS [facility] PRN Reason: Protocol Last Admin: 06/17/18 17:05 Dose: 4 u Losartan Potassium (Cozaar) 12.5 mg PO DAILY [facility] Last Admin: 06/17/18 10:19 Dose: 12.5 mg Spironolactone (Aldactone) 12.5 mg PO BID [facility] Last Admin: 06/17/18 17:05 Dose: 12.5 mg Warfarin Sodium (Coumadin) 5 mg PO 1800 [facility] PRN Reason: Protocol Last Admin: 06/17/18 17:05 Dose: 5 mg - Labs Labs: 06/17/18 05:30 06/17/18 05:30 PT 11.4 SECONDS (9.4-12.5) 06/17/18 05:30 INR 0.99 06/17/18 05:30 APTT 34.2 Seconds (25.1-36.5) 06/17/18 05:30 Attending/Attestation - Attestation I have personally seen and examined this patient.: Yes I have fully participated in the care of the patient.: Yes I have reviewed all pertinent clinical information, including history, physical exam and plan: Yes Notes (Text): Patient seen and examined by me at 9:40AM with resident 06/15/18. Case including HPI, physical exam, and assessment and plan discussed with resident. Agree with above with following additions/corrections. Patient is a 48 year old male with past medical history significant for diabetes , high cholesterol, and pacemaker that presented to the emergency room with left hand numbness. Patient states he is feeling ok. States left hand numbness resolved and only lasted 3 minutes. He denies any chest pain or shortness of breath. No headaches or dizziness. No fevers or chills. No nausea, vomiting, or abdominal pain. No dysuria. Physical exam: Gen: Awake and alert lying in bed in no acute distress HEENT: Normocephalic, atraumatic. Extraocular muscles intact, pupils equal reactive. No scleral icterus. Cardiovascular: Normal rhythm. Normal S1, S2. No murmurs, rubs or gallops appreciated Pulmonary: Normal respiratory effort. No rhonchi, rales, or wheezing appreciated. Gastrointestinal: Soft, nontender, nondistended, positive bowel sounds all 4 quadrants, no guarding. . Musculoskeletal: Moves all extremities. No calf tenderness Central nervous system: AAO x 3. Dermatologic: Skin warm and dry Assessment and plan: Patient is a 48 year old male with past medical history significant for diabetes, high cholesterol, and pacemaker that presented to the emergency room with left hand numbness. 1. Acute systolic CHF. Unclear if this is new. Patient denies any history of CHF. 2D echo per overlock elastic attacher shows EF of 26.3%, left ventricle is boderline dilated, mild concentric LVH, systolic function severely impaired, apical motion consistent with pacemaker activation (please see official read for full details). Pacemaker in place. Cardiology consulted, follow up recommendations 2. Left hand numbness. Rule out CVA. CT head per radiologist shows no acute findings. Head/neck CTA per radiologist shows no evidence of endoluminal thrombus or occlusion, with circumferential mural thrombus at the origin and in the proximal left subclavian artery with mild luminal narrowing, solitary nodule in upper pole of right thyroid lobe. Patient will need outpatient thyroid ultrasound. Patient started on Lovenox 1mg/kg q12hrs. Pending left upper extremity venous doppler. Cardiology consulted, follow up recommendations. Neurology following, recommendations appreciated. Repeat head CT per radiologist shows acute infarct. Continue ASA and plavix. Continue lipitor. 3. Hypercholesterolemia. Continue Lipitor 4. Leukocytosis. Resolved 5. DM2. Continue with insulin sliding scale. Add Levemir. Continue to monitor accuchecks. Case discussed in detail with patient and patient's at bedside regarding current diagnosis and treatment plan.
[2018-06-15] MEDS: Insulin Lispro (humaLOG) MEDIUM Coverage SC SCH ×4 (08:06→21:51)
--- NOTE | 2018-06-15 09:35 | CP.PCM.PN ---
<Gaurav Fuentes - Last Filed: 06/15/18 09:31> Subjective - Date & Time of Evaluation Date of Evaluation: 06/15/18 Time of Evaluation: 09:32 - Subjective Subjective: Gaurav Fuentes PGY2 Neurology Progress Note for Dr. Aguilar Patient was seen and examined at bedside. There were no acute overnight events. The patient denies any new symptoms, or any signs of weakness, numbness /tingling in any extremity, headaches/dizziness, nausea/vomiting, chest pain, shortness of breath, or any blurry vision or changes in hearing. Patient was educated about a low carbohydrate diet, and importance of strict glycemic control, medication compliance and exercise. Objective - Vital Signs/Intake and Output Vital Signs (last 24 hours): Temp Pulse Resp BP Pulse Ox 97.0 F L 70 20 139/81 98 06/15/18 06:00 06/15/18 06:00 06/15/18 06:00 06/15/18 06:00 06/15/18 06:00 - Medications Medications: Current Medications Acetaminophen (Tylenol 325mg Tab) 650 mg PO Q6H PRN PRN Reason: Pain, Mild (1-3) Last Admin: 06/14/18 19:42 Dose: 650 mg Aspirin (Ecotrin) 81 mg PO DAILY [facility] Atorvastatin Calcium (Lipitor) 40 mg PO DIN [facility] Last Admin: 06/14/18 16:05 Dose: 40 mg Clopidogrel Bisulfate (Plavix) 75 mg PO DAILY [facility] Last Admin: 06/14/18 16:05 Dose: 75 mg Enoxaparin Sodium (Lovenox) 40 mg SC DAILY [facility] PRN Reason: Protocol Last Admin: 06/14/18 09:58 Dose: 40 mg Insulin Human Lispro (Humalog Med) 0 units SC [facility] PRN Reason: Protocol Last Admin: 06/15/18 08:06 Dose: 5 u - Labs Labs: 06/15/18 05:40 06/15/18 05:40 PT 10.4 SECONDS (9.4-12.5) 06/14/18 01:50 INR 0.91 06/14/18 01:50 APTT 28.9 Seconds (25.1-36.5) 06/14/18 01:50 - Additional Findings Additional findings: - Constitutional Appears: Well, Non-toxic, No Acute Distress - Head Exam Head Exam: NORMAL INSPECTION - Eye Exam Eye Exam: EOMI, Normal appearance, PERRL - ENT Exam ENT Exam: Mucous Membranes Moist - Neck Exam Neck exam: Positive for: Full Rom, Normal Inspection. Negative for: Tenderness - Respiratory Exam Respiratory Exam: NORMAL BREATHING PATTERN. absent: Rales, Rhonchi, Wheezes - Cardiovascular Exam Cardiovascular Exam: RRR, +S1, +S2 - GI/Abdominal Exam GI & Abdominal Exam: Normal Bowel Sounds, Soft. absent: Distended, Tenderness - Extremities Exam Extremities exam: Positive for: full ROM, normal inspection. Negative for: pedal edema, tenderness Additional comments: no foot ulcers noted - Back Exam Back exam: NORMAL INSPECTION - Neurological Exam Neurological exam: Alert, CN II-XII Intact, Oriented x3 Additional comments: brisk reflexes in RLE no dysmetria or dysarthria noted no facial asymmetry or sensory/motor facial asymmetry muscle strength 5/5 x4 extremities - Psychiatric Exam Psychiatric exam: Normal Mood - Skin Skin Exam: Normal Color Assessment and Plan - Assessment and Plan (Free Text) Assessment: 48 year old male with PMH of diabetes, noncompliant with meds, HLD and pacemaker placement for bradycardia who presented with left hand and forearm numbness, and a headache/blurry vision for several hours. Symptoms have now resolved. Symptoms likely due to peripheral neuropathy vs mononeuritis multiplex given asymmetry and hx non-compliance with diabetic medications. Patient is at risk for CVA and heart disease given poorly controlled DM2 and HLD , so started on ASA/Plavix. MRI is not available due to pacemaker, so will repeat CT scan today. CTA head/neck showed mural thrombus in subclavian artery so Cardiology is consulted. Echocardiogram was reviewed and shows left atrium and ventricle dilation, no LV thrombus noted, and severely impaired (26% EF) systolic function. Plan: - cont ASA 81mg daily and Plavix daily - cont Lipitor 40mg daily - CT head will be repeated today to r/o subacute CVA - MRI evaluation of brain is warranted, but not available for pts w/ pacemakers at [facility] [place] - Cardio consulted for evaluation of subclavian artery thrombus - Echo done, pending official read - strict glycemic control - diabetic education - PT eval recommending home when clearaed - further recs per Dr. Aguilar Case was reviewed and discussed with Dr. Mor Fuentes PGY2 <Hetal Aguilar - Last Filed: 06/15/18 16:09> Objective - Vital Signs/Intake and Output Vital Signs (last 24 hours): Temp Pulse Resp BP Pulse Ox 98.7 F 73 18 128/76 98 06/15/18 11:36 06/15/18 12:32 06/15/18 11:36 06/15/18 12:32 06/15/18 06:00 - Medications Medications: Current Medications Acetaminophen (Tylenol 325mg Tab) 650 mg PO Q6H PRN PRN Reason: Pain, Mild (1-3) Last Admin: 06/14/18 19:42 Dose: 650 mg Aspirin (Ecotrin) 81 mg PO DAILY [facility] Last Admin: 06/15/18 10:57 Dose: 81 mg Atorvastatin Calcium (Lipitor) 40 mg PO DIN [facility] Last Admin: 06/14/18 16:05 Dose: 40 mg Carvedilol (Coreg) 3.125 mg PO BID [facility] Last Admin: 06/15/18 12:32 Dose: 3.125 mg Clopidogrel Bisulfate (Plavix) 75 mg PO DAILY [facility] Last Admin: 06/15/18 10:57 Dose: 75 mg Enoxaparin Sodium (Lovenox) 70 mg SC BID [facility] Insulin Detemir (Levemir) 10 unit SC HS [facility] Insulin Human Lispro (Humalog Med) 0 units SC ACHS [facility] PRN Reason: Protocol Last Admin: 06/15/18 12:33 Dose: 3 u Losartan Potassium (Cozaar) 12.5 mg PO DAILY [facility] Last Admin: 06/15/18 12:32 Dose: 12.5 mg Spironolactone (Aldactone) 12.5 mg PO BID [facility] Last Admin: 06/15/18 12:32 Dose: 12.5 mg - Labs Labs: 06/15/18 05:40 06/15/18 05:40 PT 10.4 SECONDS (9.4-12.5) 06/14/18 01:50 INR 0.91 06/14/18 01:50 APTT 28.9 Seconds (25.1-36.5) 06/14/18 01:50 Assessment and Plan - Assessment and Plan (Free Text) Plan: All medical record entries made by the resident were at my direction and personally dictated by me. I have reviewed the chart and agree that the record accurately reflects my personal performance of the history, physical exam, medical decision making, and the department course for this patient. I have also personally directed, reviewed, and agree with the discharge instructions and disposition. Plan: 1. Patient to followup with vascular surgeon 2. discharge with aspirin and plavix. 3. Stroke workup complete. Thank you Dr. aguilar
[2018-06-15] MEDS: Enoxaparin 40 mg Syringe SC SCH (10:57)
--- NOTE | 2018-06-15 16:30 | US ---
PROCEDURE: Left upper extremity venous ultrasound HISTORY: Arm pain and swelling. Evaluate for deep venous thrombosis. PHYSICIAN(S): Paxton Madison MD. FINDINGS: The left IJ appears to be chronically occluded. There appears to be a collateral present. The left subclavian and axillary veins are normal in appearance. The deep venous system of the proximal left upper extremity is unremarkable. IMPRESSION: 1. Chronically occluded left internal jugular vein. 2. No acute DVT is appreciated .
--- NOTE | 2018-06-15 17:29 | CON ---
Copied To: Sandeep Patel MD Attending MD: Sandeep Patel MD DATE: 06/15/2018 CARDIOLOGY CONSULT REASON FOR CONSULTATION: Cardiomyopathy. HISTORY OF PRESENT ILLNESS: The patient is a 48-year-old male who has a history of diabetes mellitus for the past 20 years, history of dual-chamber pacemaker placement in 2013 or 2014 according to him at [facility] for slow heart rate. The patient states he underwent cardiac catheterization at that time, but does not know the finding. The patient presented because of an episode of left arm numbness followed by headache. The patient denies any motor weakness, dizziness or speech difficulty and is unaware of any history of stroke in the past. The patient lost followup with all his physicians because of his loss of insurance and he gets diabetes medicine that is refilled by a cousin of his. The patient is unaware of any history of heart attack in the past. SOCIAL HISTORY: The patient is a former smoker, quit 5 years ago. 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 REVIEW OF SYSTEMS: The patient did experience nausea and headache at the time of his left arm numbness. PHYSICAL EXAMINATION: GENERAL: The patient is a middle-aged male who does not appear to be in any distress. VITAL SIGNS: Blood pressure 139/81, heart rate 70, temperature 97, respirations 20. HEENT: Normocephalic. CHEST: Clear. HEART: S1 and S2 regular. ABDOMEN: Soft. EXTREMITIES: No edema. LABORATORY DATA: Hemoglobin and hematocrit 12.9 and 36.2, white count and platelet count are within normal limits. SMA-7 is within normal limit except for glucose of 251 and creatinine 0.6. Total cholesterol elevated at 261, LDL cholesterol is elevated at 188. Triglycerides and HDL cholesterol are within normal limit. Chest x-ray revealed prominent bronchovascular markings. Normal cardiac silhouette and dual-chamber pacemaker. Head CT scan without contrast, no acute findings. Head and neck CT angio revealed no evidence of endoluminal thrombus or occlusion, atherosclerotic calcification in the distal posterior segment, cavernous carotid and supraglenoid right internal carotid artery with mild luminal narrowing. No evidence of hemodynamic significant stenosis and internal carotid arteries. Patent bilateral vertebral arteries. Circumferential mural thrombus at the origin and in the proximal left subclavian artery with mild luminal narrowing. Patent bilateral vertebral arteries. EKG revealed atrial sensed ventricular paced rhythm at the rate of 87. Echocardiographic study revealed borderline dilated left ventricle with mild concentric LVH and severely depressed systolic function. Ejection fraction was estimated at 26%, moderately dilated left atrium. ASSESSMENT: 1. Cardiomyopathy. 2. Uncontrolled diabetes mellitus. 3. Left arm numbness with evidence of circumferential stenosis involving the proximal left subclavian artery. 4. Status post biventricular pacemaker placement. RECOMMENDATIONS: Continue aspirin 81 mg once a day, Lipitor at 40 mg once a day. Increase Lovenox to therapeutic regimen at 70 mg twice a day, continue Plavix 75 mg once a day and the possibility of left ventricular embolization causing the left subclavian artery thrombosis does exist; however, there are no clinical stigmata for left upper extremity acute vascular insufficiency. I recommend performing arterial duplex of the left subclavian as well as left axillary and left brachial artery. In the meantime, start Coreg 3.125 mg twice a day and Aldactone 12.5 mg once a day and enalapril 2.5 mg once a day. Sandeep Patel MD
[2018-06-15] MEDS: Enoxaparin 100 mg Syringe SC SCH (17:31)
[2018-06-15] MEDS ORDERED: Enoxaparin 40 mg Syringe SC SCH (18:00)
[2018-06-15] MEDS ORDERED: Insulin Detemir 100 units/ml Vial (Levemir) SC SCH (22:00)
[2018-06-16 06:30] LABS: BASO # 0.02 K/mm3 (0.0-2.0); BASO % 0.3 % (0.0-3.0); EOS # 0.1 (0.0-0.7); EOS % 1.2 % (1.5-5.0); GRAN # 4.1 (1.4-6.5); GRAN % 56.5 % (50.0-68.0); HEMOGLOBIN 13.3 g/dL (14.0-18.0); LYMPH # 2.5 (1.2-3.4); LYMPH % 34.8 % (22.0-35.0); MEAN CELL VOLUME 77.9 fl (80.0-105.0); MEAN CORPUSCULAR HEMOGLOBIN 27.5 pg (25.0-35.0); MEAN CORPUSCULAR HGB CONC 35.3 g/dl (31.0-37.0); MEAN PLATELET VOLUME 10.6 fl (7.0-11.0); MONO # 0.5 (0.1-0.6); MONO % 7.2 % (1.0-6.0); RBC 4.84 10^6/uL (3.5-6.1); RED CELL DISTRIBUTION WIDTH 12.9 % (11.5-14.5); WHITE BLOOD COUNT 7.3 10^3/ul (4.5-11.0)
[2018-06-16 07:05] LABS: ALB/GLOB RATIO 1.2 (1.1-1.8); ALBUMIN 3.2 g/dL (3.0-4.8); ALT/SGPT 25 U/L (7-56); AST/SGOT 13 U/L (17-59); BLOOD UREA NITROGEN 13 mg/dL (7-21); CALCIUM 9.1 mg/dL (8.4-10.5); GFR NON-AFRICAN AMERICAN > 60
--- NOTE | 2018-06-16 08:07 | CT ---
Date of service: 06/15/2018 PROCEDURE: CT HEAD WITHOUT CONTRAST. HISTORY: f/u scan of head to r/o TIA COMPARISON: 06/14/2018 TECHNIQUE: Axial computed tomography images were obtained through the head/brain without intravenous contrast. Radiation dose: Total exam DLP = 930 mGy-cm. This CT exam was performed using one or more of the following dose reduction techniques: Automated exposure control, adjustment of the mA and/or kV according to patient size, and/or use of iterative reconstruction technique. FINDINGS: HEMORRHAGE: No intracranial hemorrhage. BRAIN: There is an acute infarct in the right parietal lobe measuring 2 cm in diameter. VENTRICLES: Unremarkable. No hydrocephalus. CALVARIUM: Unremarkable. PARANASAL SINUSES: Unremarkable as visualized. No significant inflammatory changes. MASTOID AIR CELLS: Unremarkable as visualized. No inflammatory changes. OTHER FINDINGS: The report concurs with the preliminary [facility] report IMPRESSION: There is an acute infarct in the right parietal lobe measuring 2 cm in diameter.
[2018-06-16] MEDS: Insulin Lispro (humaLOG) MEDIUM Coverage SC SCH ×2 (08:10→12:34)
[2018-06-16] MEDS: Enoxaparin 100 mg Syringe SC SCH (09:43)
--- NOTE | 2018-06-16 10:10 | CP.PCM.PN ---
<King Walker - Last Filed: 06/16/18 13:21> Subjective - Date & Time of Evaluation Date of Evaluation: 06/16/18 Time of Evaluation: 10:08 - Subjective Subjective: King Walker DO PGY1 - Internal Medicine Cutter Machine - Hospital Progress Note Seen and examined at bedside this AM. Made aware of imaging results, and plans for evaluation by IR discussed w/ patient this AM. Medications regarding HF were discussed w/ patient. No overnight complaints, no acute events reported this AM . Patient had headaches overnight; resolved w/ tylenol. 12 system ROS is otherwise negative Objective - Vital Signs/Intake and Output Vital Signs (last 24 hours): Temp Pulse Resp BP Pulse Ox 98.5 F 71 20 136/76 99 06/16/18 06:00 06/16/18 09:42 06/16/18 06:00 06/16/18 09:42 06/16/18 06:00 Intake and Output: 06/16/18 06/16/18 06:59 18:59 Intake Total 420 Balance 420 - Medications Medications: Current Medications Acetaminophen (Tylenol 325mg Tab) 650 mg PO Q6H PRN PRN Reason: Pain, Mild (1-3) Last Admin: 06/14/18 19:42 Dose: 650 mg Aspirin (Ecotrin) 81 mg PO DAILY [facility] Last Admin: 06/16/18 09:42 Dose: 81 mg Atorvastatin Calcium (Lipitor) 40 mg PO DIN [facility] Last Admin: 06/15/18 17:32 Dose: 40 mg Carvedilol (Coreg) 3.125 mg PO BID [facility] Last Admin: 06/16/18 09:42 Dose: 3.125 mg Clopidogrel Bisulfate (Plavix) 75 mg PO DAILY [facility] Last Admin: 06/16/18 09:41 Dose: 75 mg Enoxaparin Sodium (Lovenox) 70 mg SC BID [facility] Last Admin: 06/16/18 09:43 Dose: 70 mg Insulin Detemir (Levemir) 10 unit SC HS [facility] Last Admin: 06/15/18 21:50 Dose: 10 unit Insulin Human Lispro (Humalog Med) 0 units SC ACHS [facility] PRN Reason: Protocol Last Admin: 06/16/18 08:10 Dose: 5 units Losartan Potassium (Cozaar) 12.5 mg PO DAILY [facility] Last Admin: 06/16/18 09:42 Dose: 12.5 mg Spironolactone (Aldactone) 12.5 mg PO BID [facility] Last Admin: 06/16/18 09:41 Dose: 12.5 mg - Labs Labs: 06/16/18 05:40 06/16/18 05:40 PT 10.4 SECONDS (9.4-12.5) 06/14/18 01:50 INR 0.91 06/14/18 01:50 APTT 28.9 Seconds (25.1-36.5) 06/14/18 01:50 Physical Exam - Constitutional Appears: Well, Non-toxic, No Acute Distress - Head Exam Head Exam: ATRAUMATIC, NORMOCEPHALIC - Eye Exam Eye Exam: EOMI, Normal appearance, PERRL - ENT Exam ENT Exam: Mucous Membranes Moist - Respiratory Exam Respiratory Exam: Clear to Ausculation Bilateral, NORMAL BREATHING PATTERN. absent: Rales, Rhonchi, Wheezes, Respiratory Distress - Cardiovascular Exam Cardiovascular Exam: REGULAR RHYTHM, RRR. absent: Murmur - GI/Abdominal Exam GI & Abdominal Exam: Soft, Normal Bowel Sounds. absent: Tenderness - Extremities Exam Extremities Exam: Full ROM, Normal Capillary Refill, Normal Inspection - Back Exam Back Exam: absent: CVA tenderness (L), CVA tenderness (R) - Neurological Exam Neurological Exam: Alert, Awake, CN II-XII Intact Neuro motor strength exam: Left Upper Extremity: 5, Right Upper Extremity: 5, Left Lower Extremity: 5, Right Lower Extremity: 5 UE and LE sensations intact BL - Psychiatric Exam Psychiatric exam: Normal Affect, Normal Mood - Skin Skin Exam: Dry, Intact, Normal Color, Warm Assessment and Plan - Assessment and Plan (Free Text) Assessment: 48M PMH of DM, HLD, and Pacemaker placement 2/2 bradycardia presented to [facility] [place] ED on 06/14 for CC of BOYD and L hand numbness. Patient was found to have stroke and mural thrombus in L subclavian; currently admitted to tele. Plan: ACUTE CVA Intial CT head w/o contrast: No evidence of an acute intracranial hemorrhage, midline shift or mass effect is identified Repeat CT - Subacute infarct in R parietal lobe measuring 2cm CTA Head - R ICA w/ mild luminal narrowing, Solitary nodule in upper pole of R thyroid lobe, Thrombus in L subclavian artery EKG: sinus rhythm at 87 bpm, electronic ventricular pacemaker Due to thrombus, patient was started on Coumadin, and continued on lovenox; ASA and Plavix were DC'd Neurology consulted, appreciate reccs New onset HFrEF - EF 26% Losartan 12.5 QD Carvedilol 3.125 BID Spironolactone 12.5 BID Cardiology Following Mural Thrombus - L subclavian artery Seen on CTAP C/w Lovenox 70 BID Started Coumadin 5 Will follow up INR in AM Cardiology Following IR Consulted, appreciate reccs Uncontrolled DM w/ Neuropathy A1C: 11.9 AM Glucose 263; POC: 218-298 Increased to levemir 15 HS Increased to ISS High accu checks achs HHD + Carb Control Pacemaker placement 11/26 ? bradycardia No medications at home Placed 08/07 at [facility] f/u medical records at [facility] for etiology and further history Hypercholesterolemia Elevated Total Cholesterol and LDL Atorvastatin 40 mg PO R thyroid Nodule Follow up as outpt Leukocytosis- Resolved DVT ppx SCDs Lovenox 40 mg SC GI prophylaxis not indicated DISPO: Inpatient admission for workup of stroke, and arterial thrombus Patient was seen, examined, and discussed w/ attending physician Dr. Juvencio Walker DO PGY1- Internal Medicine Cutter Machine - Pager [phone] <Maximino Henning - Last Filed: 06/16/18 14:05> Objective - Vital Signs/Intake and Output Vital Signs (last 24 hours): Temp Pulse Resp BP Pulse Ox 98.2 F 78 20 119/70 99 06/16/18 12:00 06/16/18 12:00 06/16/18 12:00 06/16/18 12:00 06/16/18 06:00 Intake and Output: 06/16/18 06/16/18 06:59 18:59 Intake Total 420 Balance 420 - Medications Medications: Current Medications Acetaminophen (Tylenol 325mg Tab) 650 mg PO Q6H PRN PRN Reason: Pain, Mild (1-3) Last Admin: 06/14/18 19:42 Dose: 650 mg Atorvastatin Calcium (Lipitor) 40 mg PO DIN [facility] Last Admin: 06/15/18 17:32 Dose: 40 mg Carvedilol (Coreg) 3.125 mg PO BID [facility] Last Admin: 06/16/18 09:42 Dose: 3.125 mg Enoxaparin Sodium (Lovenox) 70 mg SC BID [facility] Insulin Detemir (Levemir) 15 unit SC HS [facility] Insulin Human Regular (Humulin R High) 0 units SC ACHS [facility] PRN Reason: Protocol Losartan Potassium (Cozaar) 12.5 mg PO DAILY [facility] Last Admin: 06/16/18 09:42 Dose: 12.5 mg Spironolactone (Aldactone) 12.5 mg PO BID [facility] Last Admin: 06/16/18 09:41 Dose: 12.5 mg Warfarin Sodium (Coumadin) 5 mg PO 1800 [facility] PRN Reason: Protocol - Labs Labs: 06/16/18 05:40 06/16/18 05:40 PT 10.4 SECONDS (9.4-12.5) 06/14/18 01:50 INR 0.91 06/14/18 01:50 APTT 28.9 Seconds (25.1-36.5) 06/14/18 01:50 Attending/Attestation - Attestation I have personally seen and examined this patient.: Yes I have fully participated in the care of the patient.: Yes I have reviewed all pertinent clinical information, including history, physical exam and plan: Yes Notes (Text): 06/16/18 13:57 48 year old male with past medical history of diabetes, dyslipidemia, and bradycardia s/p PPM who presented with complaint of left hand numbness. Initial CT head was negative but repeat CT head showed acute infarct in the right parietal lobes. CTA head and neck showed left subclavian artery thrombus. 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 Patient was on aspirin and plavix, now switched to lovenox and coumadin. Neurology and cardiology are following. IR evaluation is requested. PT follow up requested. Echocardiogram showed severely impaired EF 26%. Patient is on coreg, losartan and spironalactone. Patient is on insulin ss and levemir for diabetes. Dose was increased today. Maximino Henning MD Hospitalist.
--- NOTE | 2018-06-16 10:12 | CP.PCM.PN ---
<Gaurav Fuentes - Last Filed: 06/16/18 10:12> Subjective - Date & Time of Evaluation Date of Evaluation: 06/16/18 Time of Evaluation: 10:10 - Subjective Subjective: Gaurav Fuentes PGY2 Neurology Progress Note for Dr. Aguilar Patient was seen and examined at bedside. He denies any acute overnight events. He denies any changes in speech, focal weakness, motor sensory deficits or changes, headaches or dizziness, chest pain or shortness of breath. Repeat CT head showed acute infarct in right parietal lobe measuring 2 cm in diameter. Venous duplex ultrasound of LUE showed a chronically occluded LIJ but no DVTs. Cardiology is following the patient, and recommended patient to be started on Coreg, losartan and Aldactone. Upper extremity arterial duplex is also ordered, and interventional radiology is consulted for further recommendations. The patient was educated on his condition, and strongly encouraged to comply with his medications as he is at risk for future thromboembolic events. Objective - Vital Signs/Intake and Output Vital Signs (last 24 hours): Temp Pulse Resp BP Pulse Ox 98.5 F 71 20 136/76 99 06/16/18 06:00 06/16/18 09:42 06/16/18 06:00 06/16/18 09:42 06/16/18 06:00 Intake and Output: 06/16/18 06/16/18 06:59 18:59 Intake Total 420 Balance 420 - Medications Medications: Current Medications Acetaminophen (Tylenol 325mg Tab) 650 mg PO Q6H PRN PRN Reason: Pain, Mild (1-3) Last Admin: 06/14/18 19:42 Dose: 650 mg Aspirin (Ecotrin) 81 mg PO DAILY [facility] Last Admin: 06/16/18 09:42 Dose: 81 mg Atorvastatin Calcium (Lipitor) 40 mg PO DIN [facility] Last Admin: 06/15/18 17:32 Dose: 40 mg Carvedilol (Coreg) 3.125 mg PO BID [facility] Last Admin: 06/16/18 09:42 Dose: 3.125 mg Clopidogrel Bisulfate (Plavix) 75 mg PO DAILY [facility] Last Admin: 06/16/18 09:41 Dose: 75 mg Enoxaparin Sodium (Lovenox) 70 mg SC BID [facility] Last Admin: 06/16/18 09:43 Dose: 70 mg Insulin Detemir (Levemir) 10 unit SC [facility] Last Admin: 06/15/18 21:50 Dose: 10 unit Insulin Human Lispro (Humalog Med) 0 units SC ACHS [facility] PRN Reason: Protocol Last Admin: 06/16/18 08:10 Dose: 5 units Losartan Potassium (Cozaar) 12.5 mg PO DAILY [facility] Last Admin: 06/16/18 09:42 Dose: 12.5 mg Spironolactone (Aldactone) 12.5 mg PO BID [facility] Last Admin: 06/16/18 09:41 Dose: 12.5 mg - Labs Labs: 06/16/18 05:40 06/16/18 05:40 PT 10.4 SECONDS (9.4-12.5) 06/14/18 01:50 INR 0.91 06/14/18 01:50 APTT 28.9 Seconds (25.1-36.5) 06/14/18 01:50 - Additional Findings Additional findings: - Constitutional Appears: Well, Non-toxic, No Acute Distress - Head Exam Head Exam: NORMAL INSPECTION - Eye Exam Eye Exam: EOMI, Normal appearance, PERRL - ENT Exam ENT Exam: Mucous Membranes Moist - Neck Exam Neck exam: Positive for: Full Rom, Normal Inspection. Negative for: Tenderness - Respiratory Exam Respiratory Exam: NORMAL BREATHING PATTERN. absent: Rales, Rhonchi, Wheezes - Cardiovascular Exam Cardiovascular Exam: RRR, +S1, +S2 - GI/Abdominal Exam GI & Abdominal Exam: Normal Bowel Sounds, Soft. absent: Distended, Tenderness - Extremities Exam Extremities exam: Positive for: full ROM, normal inspection. Negative for: pedal edema, tenderness Additional comments: no foot ulcers noted - Back Exam Back exam: NORMAL INSPECTION - Neurological Exam Neurological exam: Alert, CN II-XII Intact, Oriented x3 Additional comments: brisk reflexes in RLE no dysmetria or dysarthria noted no facial asymmetry or sensory/motor facial asymmetry muscle strength 5/5 x4 extremities - Psychiatric Exam Psychiatric exam: Normal Mood - Skin Skin Exam: Normal Color Assessment and Plan - Assessment and Plan (Free Text) Assessment: 48 year old male with PMH of diabetes, noncompliant with meds, HLD and pacemaker placement for bradycardia who presented with left hand and forearm numbness, and a headache/blurry vision for several hours. Symptoms have now resolved. Symptoms initially thought to be due to his uncontrolled diabetes and hx non-compliance with medications. Complete stroke work-up shows acute CVA in right parietal region. Patient was high-risk for CVA and heart disease so was started on ASA/Plavix. MRI is not available due to pacemaker. CTA head/neck showed mural thrombus in subclavian artery so Cardiology and IR are consulted. Echocardiogram was reviewed and shows left atrium and ventricle dilation, no LV thrombus noted, and severely impaired (26% EF) systolic function. Plan: - cont ASA 81mg daily and Plavix daily - cont Lipitor 40mg daily - started on therapeutic lovenox by cardiology for subclavian artery thrombus - patient should follow-up with a vascular surgeon upon discharge - strict glycemic control - diabetic education - educated regarding medication adherence - PT eval recommending home when cleared - further recs per Dr. Aguilar Case was reviewed and discussed with Dr. Mor Fuentes PGY2 <Hetal Aguilar - Last Filed: 06/16/18 10:52> Objective - Vital Signs/Intake and Output Vital Signs (last 24 hours): Temp Pulse Resp BP Pulse Ox 98.5 F 71 20 136/76 99 06/16/18 06:00 06/16/18 09:42 06/16/18 06:00 06/16/18 09:42 06/16/18 06:00 Intake and Output: 06/16/18 06/16/18 06:59 18:59 Intake Total 420 Balance 420 - Medications Medications: Current Medications Acetaminophen (Tylenol 325mg Tab) 650 mg PO Q6H PRN PRN Reason: Pain, Mild (1-3) Last Admin: 06/14/18 19:42 Dose: 650 mg Aspirin (Ecotrin) 81 mg PO DAILY [facility] Last Admin: 06/16/18 09:42 Dose: 81 mg Atorvastatin Calcium (Lipitor) 40 mg PO DIN [facility] Last Admin: 06/15/18 17:32 Dose: 40 mg Carvedilol (Coreg) 3.125 mg PO BID [facility] Last Admin: 06/16/18 09:42 Dose: 3.125 mg Clopidogrel Bisulfate (Plavix) 75 mg PO DAILY [facility] Last Admin: 06/16/18 09:41 Dose: 75 mg Enoxaparin Sodium (Lovenox) 70 mg SC BID [facility] Last Admin: 06/16/18 09:43 Dose: 70 mg Insulin Detemir (Levemir) 15 unit SC [facility] Insulin Human Lispro (Humalog Med) 0 units SC ACHS [facility] PRN Reason: Protocol Last Admin: 06/16/18 08:10 Dose: 5 units Losartan Potassium (Cozaar) 12.5 mg PO DAILY [facility] Last Admin: 06/16/18 09:42 Dose: 12.5 mg Spironolactone (Aldactone) 12.5 mg PO BID [facility] Last Admin: 06/16/18 09:41 Dose: 12.5 mg - Labs Labs: 06/16/18 05:40 06/16/18 05:40 PT 10.4 SECONDS (9.4-12.5) 06/14/18 01:50 INR 0.91 06/14/18 01:50 APTT 28.9 Seconds (25.1-36.5) 06/14/18 01:50 Assessment and Plan - Assessment and Plan (Free Text) Plan: All medical record entries made by the resident were at my direction and personally dictated by me. I have reviewed the chart and agree that the record accurately reflects my personal performance of the history, physical exam, medical decision making, and the department course for this patient. Neurology attending note: Ct scan findings reviewed. Acute right M2 division stroke with only sensory findings, parietal region. CTA shows intramural thrombus. will be maintained on lovenox weight based right now. I feel that adding aspirin and plavix in addition may lead to hemorrhagic conversion. We will call about further recommendations. Thank you Dr. aguilar
[2018-06-16 16:34] LABS: BARBITURATES, UR NEGATIVE (NEGATIVE); BENZODIAZEPINES, UR NEGATIVE (NEGATIVE); OPIATES, UR NEGATIVE (NEGATIVE); PHENCYCLIDINE, UR NEGATIVE (NEGATIVE)
--- NOTE | 2018-06-16 17:09 | PN ---
Copied To: Sandeep Patel MD Attending MD: Sandeep Patel MD DATE: 06/16/2018 SUBJECTIVE: The patient denies chest pain, dizziness or shortness of breath. The patient denies having speech difficulty at this time, although he denied having it on admission when I spoking yesterday. Today, he recalls having difficulty talking to his , but as per him could not remember that yesterday. PHYSICAL EXAMINATION: VITAL SIGNS: Blood pressure 119/70, heart rate 78, temperature 98.2, respirations 20. HEENT: Normocephalic. CHEST: Clear. HEART: S1 and S2 regular. EXTREMITIES: No edema. LABORATORY DATA: Hemoglobin and hematocrit 13.3 and 37.7. White count and platelet count are within normal limit. The SMA-7 is within normal limits except for glucose 263 and creatinine 0.7. DIAGNOSTIC STUDIES: Repeated CT scan without contrast revealed an acute infarct in the right parietal lobe measuring 2 cm in diameter. Left upper extremity ultrasound revealed chronic occluded left internal jugular vein. No acute DVT was appreciated, although, I recall that I did request a serial duplex of the left upper extremity which I did re-order it again. ASSESSMENT: 1. Acute cerebrovascular accident with right parietal infarct, most likely an embolic event. 2. Cardiomyopathy. 3. Left subclavian thrombosis. 4. Uncontrolled diabetes mellitus. RECOMMENDATIONS: Continue Aldactone 12.5 mg twice a day, Coreg 3.125 mg twice a day, Cozaar 12.5 mg once a day, Lipitor 20 mg once a day, Lovenox at 70 mg subcutaneously twice a day. Long-term Coumadin therapy is indicated. However, the issue of compliance may interfere with this option. Case will be discussed with medical team. Sandeep Patel MD
[2018-06-16] MEDS: Enoxaparin 80 mg Syringe SC SCH (17:17)
[2018-06-16] MEDS: Insulin Reg-HIGH-Coverage SC SCH ×2 (17:18→22:32)
[2018-06-16] MEDS: Insulin Detemir 100 units/ml Vial (Levemir) SC SCH (22:26)
[2018-06-17 06:44] LABS: BASO # 0.02 K/mm3 (0.0-2.0); BASO % 0.3 % (0.0-3.0); EOS # 0.1 (0.0-0.7); EOS % 1.3 % (1.5-5.0); GRAN # 3.61 (1.4-6.5); GRAN % 51.2 % (50.0-68.0); HEMOGLOBIN 13.7 g/dL (14.0-18.0); LYMPH # 2.9 (1.2-3.4); LYMPH % 41.1 % (22.0-35.0); MEAN CELL VOLUME 77.6 fl (80.0-105.0); MEAN CORPUSCULAR HEMOGLOBIN 27.5 pg (25.0-35.0); MEAN CORPUSCULAR HGB CONC 35.4 g/dl (31.0-37.0); MEAN PLATELET VOLUME 10.7 fl (7.0-11.0); MONO # 0.4 (0.1-0.6); MONO % 6.1 % (1.0-6.0); RBC 4.99 10^6/uL (3.5-6.1); RED CELL DISTRIBUTION WIDTH 12.9 % (11.5-14.5)
[2018-06-17 06:49] LABS: INR 0.99; PARTIAL THROMBOPLASTIN TIME 34.2 Seconds (25.1-36.5); PROTHROMBIN TIME 11.4 SECONDS (9.4-12.5)
[2018-06-17 06:52] LABS: ALB/GLOB RATIO 1.2 (1.1-1.8); ALBUMIN 3.5 g/dL (3.0-4.8); ALT/SGPT 23 U/L (7-56); AST/SGOT 21 U/L (17-59); BLOOD UREA NITROGEN 11 mg/dL (7-21); CALCIUM 9.3 mg/dL (8.4-10.5); GFR NON-AFRICAN AMERICAN > 60
[2018-06-17] MEDS: Insulin Reg-HIGH-Coverage SC SCH ×4 (08:30→22:28)
[2018-06-17] MEDS: Enoxaparin 80 mg Syringe SC SCH ×2 (10:19→17:06)
--- NOTE | 2018-06-17 10:54 | PN ---
Copied To: Sandeep Patel MD Attending MD: Sandeep Patel MD DATE: 06/17/2018 FOLLOWUP SUBJECTIVE: The patient denies any arm numbness, speech difficulty or dizziness. PHYSICAL EXAMINATION: VITAL SIGNS: Blood pressure 139/81, heart rate 84, temperature 97.7, respirations 18. HEENT: Normocephalic. CHEST: Clear. HEART: S1 and S2 regular. EXTREMITIES: No edema. LABORATORY DATA: Today's hemoglobin and hematocrit 13.7 and 38.7, white count and platelet count are within normal limits. Today's SMA-7 is within normal limits except for glucose of 150. ASSESSMENT: 1. Status post acute cerebrovascular accident with evidence of right parietal infarct on repeat head CT scan without contrast. 2. Left subclavian artery circumferential thrombosis without evidence of peripheral ischemia. 3. Cardiomyopathy. 4. History of dual-chamber pacemaker placement. 5. Uncontrolled diabetes mellitus. RECOMMENDATIONS: Case was discussed with the Medical team. The patient is insisting on leaving the hospital now. The patient can be maintained on Aldactone, Coreg, Coumadin, Cozaar and Lipitor. To follow up in the clinic for PT and INR. Sandeep Patel MD
--- NOTE | 2018-06-17 15:31 | CP.PCM.CON ---
History of Present Illness - History of Present Illness History of Present Illness: Surgery Consult Note for Dr. Taylor 48 y o male PMhx DM type II, hypercholesterolemia, s/p pacemaker placement, who presented on admission with chief complaint of L hand and forearm numbness, and headache/blurry vision x several hrs onset. Reason for consult was due to mural thrombus in L subclavian artery found on CTA head/neck. Pt reports symptoms on admission have fully resolved. Pt has hx of uncontrolled DM and non-compliance with medications. Stroke work-up inpatient demonstrated acute CVA in R parietal region. Pt currently on weight-based lovenox for anticoagulation. Patient denies claudication with rest and ambulation, headache, vision changes, chest pain, shortness of breath, n/v/d/c, abd pain, urinary complaints, sensory or motor deficits, or other symptoms. Pt reports chronic hx of pain on soles of feet b/l secondary to DM. Pt denies issues with lifting objects or pain/ inability to move shoulders b/l. 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 Gaxiola [place] [place] Service Now Developer: Dr. Allan ([facility] [place]) Review of Systems - Constitutional Constitutional: absent: Fatigue, Headache, Lethargy, Malaise, Night Sweats - EENT Eyes: absent: Blurred Vision, Change in Vision - Cardiovascular Cardiovascular: absent: Chest Pain, Chest Pain with Activity, Dyspnea on Exertion, Edema, Pain Radiating to Arm/Neck/Jaw, Leg Edema, Orthopnea, Paroxysmal Nocturnal Dyspnea, Pedal Edema - Respiratory Respiratory: absent: Cough, Dyspnea, Dyspnea on Exertion, Wheezing, Pain on Inspiration - Gastrointestinal Gastrointestinal: absent: Abdominal Pain, Change in Bowel Habits, Constipation, Diarrhea, Nausea - Musculoskeletal Musculoskeletal: absent: Limited Range of Motion, Muscle Cramps, Muscle Weakness , Numbness - Neurological Neurological: absent: Abnormal Movements, Confusion, Focal Weakness, Loss of Vision Past Patient History - Past Medical History & Family History Past Medical History?: Yes - Past Social History Smoking Status: Former Smoker Alcohol: None Drugs: Denies Home Situation {Lives}: With Family - CARDIAC Hx Hypercholesterolemia: Yes - PULMONARY Hx Respiratory Disorders: No - NEUROLOGICAL Hx Neurological Disorder: No - HEENT Hx HEENT Problems: No Other/Comment: Blurry Vision - RENAL Hx Chronic Kidney Disease: No - ENDOCRINE/METABOLIC Hx Diabetes Mellitus Type 2: Yes - HEMATOLOGICAL/ONCOLOGICAL Hx Blood Disorders: No - INTEGUMENTARY Hx Dermatological Problems: No - MUSCULOSKELETAL/RHEUMATOLOGICAL Hx Arthritis: Yes Hx Falls: No - GASTROINTESTINAL Hx Gastrointestinal Disorders: No - GENITOURINARY/GYNECOLOGICAL Hx Genitourinary Disorders: No - PSYCHIATRIC Hx Psychophysiologic Disorder: No Hx Substance Use: No - SURGICAL HISTORY Hx Surgeries: Yes Hx Orthopedic Surgery: Yes (Right Shoulder) - ANESTHESIA Hx Anesthesia: Yes Meds Allergies/Adverse Reactions: Allergies Allergy/AdvReac Type Severity Reaction Status Date / Time No Known Allergies Allergy Verified 06/14/18 01:45 - Medications Medications: Current Medications Acetaminophen (Tylenol 325mg Tab) 650 mg PO Q6H PRN PRN Reason: Pain, Mild (1-3) Last Admin: 06/14/18 19:42 Dose: 650 mg Atorvastatin Calcium (Lipitor) 40 mg PO DIN [facility] Last Admin: 06/16/18 17:17 Dose: 40 mg Carvedilol (Coreg) 3.125 mg PO BID [facility] Last Admin: 06/17/18 10:19 Dose: 3.125 mg Enoxaparin Sodium (Lovenox) 70 mg SC BID [facility] Last Admin: 06/17/18 10:19 Dose: 70 mg Insulin Detemir (Levemir) 15 unit SC HS [facility] Last Admin: 06/16/18 22:26 Dose: 15 units Insulin Human Regular (Humulin R High) 0 units SC ACHS [facility] PRN Reason: Protocol Last Admin: 06/17/18 12:33 Dose: 7 u Losartan Potassium (Cozaar) 12.5 mg PO DAILY [facility] Last Admin: 06/17/18 10:19 Dose: 12.5 mg Spironolactone (Aldactone) 12.5 mg PO BID [facility] Last Admin: 06/17/18 10:19 Dose: 12.5 mg Warfarin Sodium (Coumadin) 5 mg PO 1800 [facility] PRN Reason: Protocol Last Admin: 06/16/18 22:26 Dose: 5 mg Physical Exam - Constitutional Appears: Non-toxic, No Acute Distress - Head Exam Head Exam: ATRAUMATIC, NORMAL INSPECTION - Eye Exam Eye Exam: EOMI, Normal appearance, PERRL - ENT Exam ENT Exam: Mucous Membranes Moist - Respiratory Exam Respiratory Exam: Clear to Auscultation Bilateral, NORMAL BREATHING PATTERN - Cardiovascular Exam Cardiovascular Exam: REGULAR RHYTHM, +S1, +S2 - GI/Abdominal Exam GI & Abdominal Exam: Normal Bowel Sounds, Soft. absent: Organomegaly, Rebound, Tenderness - Extremities Exam Extremities exam: Positive for: full ROM, normal capillary refill, normal inspection, pedal pulses present Additional comments: 2+ pulses intact bilaterally, no atrophic or chronic vascular changes noted on extremities - Back Exam Back exam: FULL ROM, NORMAL INSPECTION. absent: tenderness - Neurological Exam Neurological exam: Alert, CN II-XII Intact, Oriented x3 - Psychiatric Exam Psychiatric exam: Normal Affect, Normal Mood - Skin Skin Exam: Dry, Intact, Normal Color, Warm Results - Vital Signs Recent Vital Signs: Last Vital Signs Temp 98.0 F 06/17/18 13:43 Pulse 75 06/17/18 14:00 Resp 16 06/17/18 13:43 BP 131/75 06/17/18 13:43 Pulse Ox 99 06/17/18 06:00 - Labs Result Diagrams: 06/17/18 05:30 06/17/18 05:30 Labs: Laboratory Results - last 24 hr 06/16/18 06/16/18 06/16/18 11:09 15:50 15:54 WBC RBC Hgb Hct MCV MCH MCHC RDW Plt Count MPV Gran % Lymph % (Auto) Bradford % (Auto) Eos % (Auto) Baso % (Auto) Gran # Lymph # (Auto) Bradford # (Auto) Eos # (Auto) Baso # (Auto) PT INR APTT Sodium Potassium Chloride Carbon Dioxide Anion Gap BUN Creatinine Est GFR ( Amer) Est GFR (Non-Af Amer) POC Glucose (mg/dL) 234 H 253 H Random Glucose Calcium Total Bilirubin AST ALT Alkaline Phosphatase Total Protein Albumin Globulin Albumin/Globulin Ratio Urine Opiates Screen Negative Urine Methadone Screen Negative Ur Barbiturates Screen Negative Ur Phencyclidine Scrn Negative Ur Amphetamines Screen Negative U Benzodiazepines Scrn Negative U Oth Cocaine Metabols Negative U Cannabinoids Screen Negative 06/16/18 06/17/18 06/17/18 20:50 02:52 05:30 WBC 7.0 RBC 4.99 Hgb 13.7 L Hct 38.7 L MCV 77.6 L MCH 27.5 MCHC 35.4 RDW 12.9 Plt Count 195 MPV 10.7 Gran % 51.2 Lymph % (Auto) 41.1 H Bradford % (Auto) 6.1 H Eos % (Auto) 1.3 L Baso % (Auto) 0.3 Gran # 3.61 Lymph # (Auto) 2.9 Bradford # (Auto) 0.4 Eos # (Auto) 0.1 Baso # (Auto) 0.02 PT INR APTT Sodium Potassium Chloride Carbon Dioxide Anion Gap BUN Creatinine Est GFR ( Amer) Est GFR (Non-Af Amer) POC Glucose (mg/dL) 197 H 148 H Random Glucose Calcium Total Bilirubin AST ALT Alkaline Phosphatase Total Protein Albumin Globulin Albumin/Globulin Ratio Urine Opiates Screen Urine Methadone Screen Ur Barbiturates Screen Ur Phencyclidine Scrn Ur Amphetamines Screen U Benzodiazepines Scrn U Oth Cocaine Metabols U Cannabinoids Screen 06/17/18 06/17/18 06/17/18 05:30 05:30 07:21 WBC RBC Hgb Hct MCV MCH MCHC RDW Plt Count MPV Gran % Lymph % (Auto) Bradford % (Auto) Eos % (Auto) Baso % (Auto) Gran # Lymph # (Auto) Bradford # (Auto) Eos # (Auto) Baso # (Auto) PT 11.4 INR 0.99 APTT 34.2 Sodium 141 Potassium 3.7 Chloride 102 Carbon Dioxide 29 Anion Gap 14 BUN 11 Creatinine 0.8 Est GFR ( Amer) > 60 Est GFR (Non-Af Amer) > 60 POC Glucose (mg/dL) 164 H Random Glucose 150 H Calcium 9.3 Total Bilirubin 0.5 AST 21 ALT 23 Alkaline Phosphatase 54 Total Protein 6.4 Albumin 3.5 Globulin 2.9 Albumin/Globulin Ratio 1.2 Urine Opiates Screen Urine Methadone Screen Ur Barbiturates Screen Ur Phencyclidine Scrn Ur Amphetamines Screen U Benzodiazepines Scrn U Oth Cocaine Metabols U Cannabinoids Screen 06/17/18 10:56 WBC RBC Hgb Hct MCV MCH MCHC RDW Plt Count MPV Gran % Lymph % (Auto) Bradford % (Auto) Eos % (Auto) Baso % (Auto) Gran # Lymph # (Auto) Bradford # (Auto) Eos # (Auto) Baso # (Auto) PT INR APTT Sodium Potassium Chloride Carbon Dioxide Anion Gap BUN Creatinine Est GFR ( Amer) Est GFR (Non-Af Amer) POC Glucose (mg/dL) 294 H Random Glucose Calcium Total Bilirubin AST ALT Alkaline Phosphatase Total Protein Albumin Globulin Albumin/Globulin Ratio Urine Opiates Screen Urine Methadone Screen Ur Barbiturates Screen Ur Phencyclidine Scrn Ur Amphetamines Screen U Benzodiazepines Scrn U Oth Cocaine Metabols U Cannabinoids Screen Assessment & Plan - Assessment and Plan (Free Text) Assessment: 48 y o male with mural thrombus in L subclavian artery found on CTA head/neck. Plan: No acute surgical intervention needed at this time. Pt hemodynamically stable, symptoms resolved. Can follow-up with vascular as outpatient for mural thrombus of L subclavian artery. Further recommendations as per Dr. Taylor. Shyam Howard, PGY-1
--- NOTE | 2018-06-17 21:36 | CP.PCM.PN ---
<King Walker - Last Filed: 06/17/18 21:26> Subjective - Date & Time of Evaluation Date of Evaluation: 06/17/18 Time of Evaluation: 21:26 - Subjective Subjective: King Walker DO PGY1 Internal Medicine [facility] - Hospital Progress Note Patient was seen this AM at bedside; reported no acute events overnight. No complaints of focal weakness, changes in vision, or sensory deficits. Denies any chest pain, palpitations, sob, cough, abd pain, n/v/d/c, urinary complaints. 12 system ROS negative at this time. Objective - Vital Signs/Intake and Output Vital Signs (last 24 hours): Temp Pulse Resp BP Pulse Ox 98.5 F 105 H 17 134/94 H 98 06/17/18 18:00 06/17/18 18:00 06/17/18 18:00 06/17/18 18:00 06/17/18 18:00 Intake and Output: 06/17/18 06/18/18 18:59 06:59 Intake Total 720 Balance 720 - Medications Medications: Current Medications Acetaminophen (Tylenol 325mg Tab) 650 mg PO Q6H PRN PRN Reason: Pain, Mild (1-3) Last Admin: 06/14/18 19:42 Dose: 650 mg Atorvastatin Calcium (Lipitor) 40 mg PO DIN [facility] Last Admin: 06/17/18 17:05 Dose: 40 mg Carvedilol (Coreg) 3.125 mg PO BID [facility] Last Admin: 06/17/18 17:05 Dose: 3.125 mg Enoxaparin Sodium (Lovenox) 70 mg SC BID [facility] Last Admin: 06/17/18 17:06 Dose: 70 mg Insulin Detemir (Levemir) 15 unit SC HS [facility] Last Admin: 06/16/18 22:26 Dose: 15 units Insulin Human Regular (Humulin R High) 0 units SC ACHS [facility] PRN Reason: Protocol Last Admin: 06/17/18 17:05 Dose: 4 u Losartan Potassium (Cozaar) 12.5 mg PO DAILY [facility] Last Admin: 06/17/18 10:19 Dose: 12.5 mg Spironolactone (Aldactone) 12.5 mg PO BID [facility] Last Admin: 06/17/18 17:05 Dose: 12.5 mg Warfarin Sodium (Coumadin) 5 mg PO 1800 [facility] PRN Reason: Protocol Last Admin: 06/17/18 17:05 Dose: 5 mg - Labs Labs: 06/17/18 05:30 06/17/18 05:30 PT 11.4 SECONDS (9.4-12.5) 06/17/18 05:30 INR 0.99 06/17/18 05:30 APTT 34.2 Seconds (25.1-36.5) 06/17/18 05:30 Physical Exam - Constitutional Appears: Well, Non-toxic, No Acute Distress - Head Exam Head Exam: ATRAUMATIC, NORMOCEPHALIC - Eye Exam Eye Exam: EOMI, Normal appearance, PERRL - ENT Exam ENT Exam: Mucous Membranes Moist - Respiratory Exam Respiratory Exam: Clear to Ausculation Bilateral, NORMAL BREATHING PATTERN. absent: Rales, Rhonchi, Wheezes, Respiratory Distress - Cardiovascular Exam Cardiovascular Exam: REGULAR RHYTHM, RRR. absent: Murmur - GI/Abdominal Exam GI & Abdominal Exam: Soft, Normal Bowel Sounds. absent: Tenderness - Extremities Exam Extremities Exam: Full ROM, Normal Capillary Refill, Normal Inspection - Back Exam Back Exam: absent: CVA tenderness (L), CVA tenderness (R) - Neurological Exam Neurological Exam: Alert, Awake, CN II-XII Intact Neuro motor strength exam: Left Upper Extremity: 5, Right Upper Extremity: 5, Left Lower Extremity: 5, Right Lower Extremity: 5 UE and LE sensations intact BL - Psychiatric Exam Psychiatric exam: Normal Affect, Normal Mood - Skin Skin Exam: Dry, Intact, Normal Color, Warm Assessment and Plan - Assessment and Plan (Free Text) Assessment: 48M PMH of DM, HLD, and 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 Patient was found to have stroke and mural thrombus in L subclavian; currently admitted to [facility]. Plan: ACUTE CVA Intial CT head w/o contrast: No evidence of an acute intracranial hemorrhage, midline shift or mass effect is identified Repeat CT - Subacute infarct in R parietal lobe measuring 2cm CTA Head - R ICA w/ mild luminal narrowing, Solitary nodule in upper pole of R thyroid lobe, Thrombus in L subclavian artery EKG: sinus rhythm at 87 bpm, electronic ventricular pacemaker Due to thrombus, patient was started on Coumadin, and continued on therapeutic lovenox at 70mg BID Neurology consulted, appreciate reccs Mural Thrombus - L subclavian artery Seen on CTAP C/w Lovenox 70 BID C/w Coumadin 5 INR 0.99 Will monitor INR and DC lovenox once therapeutic Surgical Evaluation - No surgical intervention at this time; Pending reccs from IR Cardiology Following IR Consulted, appreciate reccs New onset HFrEF - EF 26% Losartan 12.5 QD Carvedilol 3.125 BID Spironolactone 12.5 BID Cardiology Following Uncontrolled DM w/ Neuropathy A1C: 11.9 AM Glucose 150; POC: 194-270 C/w levemir 15 HS C/w ISS High; Required 15U/ 24H accu checks achs HHD + Carb Control Pacemaker placement 11/26 ? bradycardia No medications at home Pl[place]07 [place] [facility] Hypercholesterolemia Elevated Total Cholesterol and LDL Atorvastatin 40 mg PO R thyroid Nodule Follow up as outpt Leukocytosis- Resolved DVT ppx SCDs Lovenox as above GI prophylaxis not indicated DISPO: Inpatient admission for acute stroke, lovenox to heparin bridging, and subclavian mural thrombus evaluation. Patient was seen, examined, and discussed w/ attending physician Dr. Juvencio Walker DO PGY1- Internal Medicine [facility] - Pager [phone] <Maximino Henning - Last Filed: 06/18/18 06:45> Objective - Vital Signs/Intake and Output Vital Signs (last 24 hours): Temp Pulse Resp BP Pulse Ox 97.7 F 71 19 132/92 H 99 06/18/18 06:00 06/18/18 06:00 06/18/18 06:00 06/18/18 06:00 06/18/18 06:00 Intake and Output: 06/17/18 06/18/18 18:59 06:59 Intake Total 720 480 Balance 720 480 - Medications Medications: Current Medications Acetaminophen (Tylenol 325mg Tab) 650 mg PO Q6H PRN PRN Reason: Pain, Mild (1-3) Last Admin: 06/14/18 19:42 Dose: 650 mg Atorvastatin Calcium (Lipitor) 40 mg PO DIN [facility] Last Admin: 06/17/18 17:05 Dose: 40 mg Carvedilol (Coreg) 3.125 mg PO BID [facility] Last Admin: 06/17/18 17:05 Dose: 3.125 mg Enoxaparin Sodium (Lovenox) 70 mg SC BID [facility] Last Admin: 06/17/18 17:06 Dose: 70 mg Insulin Detemir (Levemir) 15 unit SC HS [facility] Last Admin: 06/17/18 22:28 Dose: 15 units Insulin Human Regular (Humulin R High) 0 units SC ACHS [facility] PRN Reason: Protocol Last Admin: 06/17/18 22:28 Dose: Not Given Losartan Potassium (Cozaar) 12.5 mg PO DAILY [facility] Last Admin: 06/17/18 10:19 Dose: 12.5 mg Spironolactone (Aldactone) 12.5 mg PO BID [facility] Last Admin: 06/17/18 17:05 Dose: 12.5 mg Warfarin Sodium (Coumadin) 5 mg PO 1800 [facility] PRN Reason: Protocol Last Admin: 06/17/18 17:05 Dose: 5 mg - Labs Labs: 06/17/18 05:30 06/17/18 05:30 PT 11.4 SECONDS (9.4-12.5) 06/17/18 05:30 INR 0.99 06/17/18 05:30 APTT 34.2 Seconds (25.1-36.5) 06/17/18 05:30 Attending/Attestation - Attestation I have personally seen and examined this patient.: Yes I have fully participated in the care of the patient.: Yes I have reviewed all pertinent clinical information, including history, physical exam and plan: Yes Notes (Text): 06/17/18 48 year old male with past medical history of diabetes, dyslipidemia, and bradycardia s/p PPM who presented with complaint of left hand numbness. Initial CT head was negative but repeat CT head showed acute infarct in the right parietal lobes. CTA head and neck showed left subclavian artery thrombus. 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 Neurology is following. Cardiothoracic surgery evaluation was appreciated; no acute intervention planned. Recommended outpatient follow up. Patient is on anticoagulation with lovenox with coumadin bridge. INR today is 0.99. Echocardiogram showed severely impaired EF 26%. Patient is on coreg, losartan and spironalactone. Cardiology is following. Patient is on insulin ss and levemir for diabetes. Maximino Henning MD Hospitalist.
--- NOTE | 2018-06-17 22:23 | CP.PCM.PN ---
Subjective - Date & Time of Evaluation Date of Evaluation: 06/17/18 Time of Evaluation: 11:17 - Subjective Subjective: Gaurav Fuentes PGY2 Neurology Progress Note for Dr. Juares Patient was seen and examined at bedside. He denies any acute overnight events. He denies any numbness or tingling or weakness in any extremity, headaches/dizziness, change in vision/hearing. He also denies any chest pain or shortness of breath. Patient is asking regarding his discharge, and he is told that he has yet to be seen by other specialists will need to evaluate him prior to discharge. Neurologically, there are no changes since last note. Objective - Vital Signs/Intake and Output Vital Signs (last 24 hours): Temp Pulse Resp BP Pulse Ox 98.5 F 105 H 17 134/94 H 98 06/17/18 18:00 06/17/18 18:00 06/17/18 18:00 06/17/18 18:00 06/17/18 18:00 Intake and Output: 06/17/18 06/18/18 18:59 06:59 Intake Total 720 Balance 720 - Medications Medications: Current Medications Acetaminophen (Tylenol 325mg Tab) 650 mg PO Q6H PRN PRN Reason: Pain, Mild (1-3) Last Admin: 06/14/18 19:42 Dose: 650 mg Atorvastatin Calcium (Lipitor) 40 mg PO DIN [facility] Last Admin: 06/17/18 17:05 Dose: 40 mg Carvedilol (Coreg) 3.125 mg PO BID [facility] Last Admin: 06/17/18 17:05 Dose: 3.125 mg Enoxaparin Sodium (Lovenox) 70 mg SC BID [facility] Last Admin: 06/17/18 17:06 Dose: 70 mg Insulin Detemir (Levemir) 15 unit SC HS [facility] Last Admin: 06/16/18 22:26 Dose: 15 units Insulin Human Regular (Humulin R High) 0 units SC ACHS [facility] PRN Reason: Protocol Last Admin: 06/17/18 17:05 Dose: 4 u Losartan Potassium (Cozaar) 12.5 mg PO DAILY [facility] Last Admin: 06/17/18 10:19 Dose: 12.5 mg Spironolactone (Aldactone) 12.5 mg PO BID [facility] Last Admin: 06/17/18 17:05 Dose: 12.5 mg Warfarin Sodium (Coumadin) 5 mg PO 1800 [facility] PRN Reason: Protocol Last Admin: 06/17/18 17:05 Dose: 5 mg - Labs Labs: 06/17/18 05:30 06/17/18 05:30 PT 11.4 SECONDS (9.4-12.5) 06/17/18 05:30 INR 0.99 06/17/18 05:30 APTT 34.2 Seconds (25.1-36.5) 06/17/18 05:30 - Additional Findings Additional findings: - Constitutional Appears: Well, Non-toxic, No Acute Distress - Head Exam Head Exam: NORMAL INSPECTION - Eye Exam Eye Exam: EOMI, Normal appearance, PERRL - ENT Exam ENT Exam: Mucous Membranes Moist - Neck Exam Neck exam: Positive for: Full Rom, Normal Inspection. Negative for: Tenderness - Respiratory Exam Respiratory Exam: NORMAL BREATHING PATTERN. absent: Rales, Rhonchi, Wheezes - Cardiovascular Exam Cardiovascular Exam: RRR, +S1, +S2 - GI/Abdominal Exam GI & Abdominal Exam: Normal Bowel Sounds, Soft. absent: Distended, Tenderness - Extremities Exam Extremities exam: Positive for: full ROM, normal inspection. Negative for: pedal edema, tenderness Additional comments: no foot ulcers noted - Back Exam Back exam: NORMAL INSPECTION - Neurological Exam Neurological exam: Alert, CN II-XII Intact, Oriented x3 Additional comments: brisk reflexes in RLE no dysmetria or dysarthria noted no facial asymmetry or sensory/motor facial asymmetry muscle strength 5/5 x4 extremities - Psychiatric Exam Psychiatric exam: Normal Mood - Skin Skin Exam: Normal Color Assessment and Plan - Assessment and Plan (Free Text) Assessment: 48 year old male with PMH of diabetes, noncompliant with meds, HLD and pacemaker placement for bradycardia who presented with left hand and forearm numbness, and a headache/blurry vision for several hours. Symptoms have now resolved. Symptoms initially thought to be due to his uncontrolled diabetes and hx non-compliance with medications. Complete stroke work-up shows acute CVA in right parietal region. Patient was high-risk for CVA and heart disease so was started on ASA/Plavix. MRI is not available due to pacemaker. CTA head/neck showed mural thrombus in subclavian artery so Cardiology and IR are consulted. Echocardiogram was reviewed and shows left atrium and ventricle dilation, no LV thrombus noted, and severely impaired (26% EF) systolic function. Plan: - started on Coumadin daily - monitor INR daily - d/c ASA/Plavix to avoid hemorrhagic conversion - cont Lipitor 40mg daily - started on therapeutic lovenox by cardiology for subclavian artery thrombus - hypercoagulable workup ordered (AT3, factor V, Proteins C/S) - patient should follow-up with a vascular surgeon upon discharge - strict glycemic control - diabetic education - educated regarding medication adherence - PT eval recommending home when cleared - further recs per Dr. Juares Case was reviewed and discussed with Dr. Mor Fuentes PGY2
[2018-06-17] MEDS: Insulin Detemir 100 units/ml Vial (Levemir) SC SCH (22:28)
[2018-06-18 06:23] VITALS: BP 132/92; PULSE 71; RESP 19; TEMP 97.7; O2SAT 99
[2018-06-18 07:39] LABS: BASO # 0.02 K/mm3 (0.0-2.0); BASO % 0.3 % (0.0-3.0); EOS # 0.1 (0.0-0.7); EOS % 1.6 % (1.5-5.0); GRAN # 4.28 (1.4-6.5); GRAN % 56.8 % (50.0-68.0); HEMOGLOBIN 13.7 g/dL (14.0-18.0); LYMPH # 2.6 (1.2-3.4); LYMPH % 34.5 % (22.0-35.0); MEAN CELL VOLUME 77.4 fl (80.0-105.0); MEAN CORPUSCULAR HEMOGLOBIN 27.1 pg (25.0-35.0); MEAN PLATELET VOLUME 10.6 fl (7.0-11.0); MONO # 0.5 (0.1-0.6); MONO % 6.8 % (1.0-6.0); RBC 5.05 10^6/uL (3.5-6.1); RED CELL DISTRIBUTION WIDTH 12.9 % (11.5-14.5); WHITE BLOOD COUNT 7.5 10^3/ul (4.5-11.0)
[2018-06-18 07:46] LABS: INR 1.09; PARTIAL THROMBOPLASTIN TIME 35.7 Seconds (25.1-36.5); PROTHROMBIN TIME 12.5 SECONDS (9.4-12.5)
[2018-06-18 08:05] LABS: ALB/GLOB RATIO 1.3 (1.1-1.8); ALBUMIN 3.5 g/dL (3.0-4.8); ALT/SGPT 46 U/L (7-56); AST/SGOT 40 U/L (17-59); BLOOD UREA NITROGEN 13 mg/dL (7-21); CALCIUM 8.9 mg/dL (8.4-10.5); GFR NON-AFRICAN AMERICAN > 60
[2018-06-18] MEDS: Insulin Reg-HIGH-Coverage SC SCH (08:17)
--- NOTE | 2018-06-19 00:38 | CP.PCM.DIS ---
<King Walker - Last Filed: 06/19/18 00:25> Provider - Provider Date of Admission: 06/15/18 22:10 Attending physician: Maximino Henning MD Primary care physician: None Consults: Neuro: Juares Cardio: Amanda Vascular: Madison CT surg: Brandon Time Spent in preparation of Discharge (in minutes): 40 Diagnosis - Discharge Diagnosis (1) Heart failure with reduced ejection fraction Status: Acute Priority: High (2) Thrombus Status: Acute Priority: High (3) CVA (cerebral vascular accident) Status: Acute Priority: High (4) Uncontrolled diabetes mellitus Status: Chronic Priority: High (5) HLD (hyperlipidemia) Status: Chronic Priority: Medium Hospital Course - Lab Results Lab Results: Most Recent Lab Values WBC 7.5 10^3/ul (4.5-11.0) 06/18/18 06:30 RBC 5.05 10^6/uL (3.5-6.1) 06/18/18 06:30 Hgb 13.7 g/dL (14.0-18.0) L 06/18/18 06:30 Hct 39.1 % (42.0-52.0) L 06/18/18 06:30 MCV 77.4 fl (80.0-105.0) L 06/18/18 06:30 MCH 27.1 pg (25.0-35.0) 06/18/18 06:30 MCHC 35.0 g/dl (31.0-37.0) 06/18/18 06:30 RDW 12.9 % (11.5-14.5) 06/18/18 06:30 Plt Count 191 10^3/uL (120.0-450.0) 06/18/18 06:30 MPV 10.6 fl (7.0-11.0) 06/18/18 06:30 Gran % 56.8 % (50.0-68.0) 06/18/18 06:30 Lymph % (Auto) 34.5 % (22.0-35.0) 06/18/18 06:30 Rincon % (Auto) 6.8 % (1.0-6.0) H 06/18/18 06:30 Eos % (Auto) 1.6 % (1.5-5.0) 06/18/18 06:30 Baso % (Auto) 0.3 % (0.0-3.0) 06/18/18 06:30 Gran # 4.28 (1.4-6.5) 06/18/18 06:30 Lymph # (Auto) 2.6 (1.2-3.4) 06/18/18 06:30 Rincon # (Auto) 0.5 (0.1-0.6) 06/18/18 06:30 Eos # (Auto) 0.1 (0.0-0.7) 06/18/18 06:30 Baso # (Auto) 0.02 K/mm3 (0.0-2.0) 06/18/18 06:30 PT 12.5 SECONDS (9.4-12.5) 06/18/18 06:30 INR 1.09 06/18/18 06:30 APTT 35.7 Seconds (25.1-36.5) 06/18/18 06:30 Sodium 141 mmol/L (132-148) 06/18/18 06:30 Potassium 3.5 mmol/L (3.6-5.0) L 06/18/18 06:30 Chloride 102 mmol/L (98-107) 06/18/18 06:30 Carbon Dioxide 30 mmol/L (21-33) 06/18/18 06:30 Anion Gap 13 (10-20) 06/18/18 06:30 BUN 13 mg/dL (7-21) 06/18/18 06:30 Creatinine 0.8 mg/dl (0.8-1.5) 06/18/18 06:30 Est GFR ( Amer) > 60 06/18/18 06:30 Est GFR (Non-Af Amer) > 60 06/18/18 06:30 POC Glucose (mg/dL) 205 mg/dL (65-110) H 06/18/18 07:27 Random Glucose 175 mg/dL (70-110) H 06/18/18 06:30 Hemoglobin A1c 11.9 % (4.2-6.5) H 06/14/18 06:10 Calcium 8.9 mg/dL (8.4-10.5) 06/18/18 06:30 Phosphorus 3.3 mg/dL (2.5-4.5) 06/14/18 06:10 Magnesium 1.8 mg/dL (1.7-2.2) 06/14/18 06:10 Total Bilirubin 0.5 mg/dL (0.2-1.3) 06/18/18 06:30 AST 40 U/L (17-59) 06/18/18 06:30 ALT 46 U/L (7-56) 06/18/18 06:30 Alkaline Phosphatase 52 U/L (38-126) 06/18/18 06:30 Troponin I < 0.01 ng/mL 06/14/18 01:50 Total Protein 6.2 g/dL (5.8-8.3) 06/18/18 06:30 Albumin 3.5 g/dL (3.0-4.8) 06/18/18 06:30 Globulin 2.7 gm/dL 06/18/18 06:30 Albumin/Globulin Ratio 1.3 (1.1-1.8) 06/18/18 06:30 Triglycerides 122 mg/dL (35-160) 06/14/18 06:10 Cholesterol 261 mg/dL (130-200) H 06/14/18 06:10 LDL Cholesterol Direct 188 mg/dL (0-129) H 06/14/18 06:10 HDL Cholesterol 35 mg/dL (29-60) 06/14/18 06:10 Vitamin B12 372 pg/mL (239-931) 06/14/18 06:10 Folate 15.1 ng/mL 06/14/18 06:10 Free T4 1.12 ng/dL (0.78-2.19) 06/14/18 06:00 TSH 3rd Generation 0.45 mIU/mL (0.46-4.68) L 06/14/18 06:10 Urine Color Light yellow (YELLOW) 06/14/18 05:30 Urine Appearance Clear (CLEAR) 06/14/18 05:30 Urine pH 6.5 (4.7-8.0) 06/14/18 05:30 Ur Specific Broughton 1.020 (1.005-1.035) 06/14/18 05:30 Urine Protein 100 mg/dL (<30 mg/dL) H 06/14/18 05:30 Urine Glucose (UA) >=1000 mg/dL (NEGATIVE) 06/14/18 05:30 Urine Ketones 40 mg/dL (NEGATIVE) H 06/14/18 05:30 Urine Blood Trace-lysed (NEGATIVE) H 06/14/18 05:30 Urine Nitrate Negative (NEGATIVE) 06/14/18 05:30 Urine Bilirubin Negative (NEGATIVE) 06/14/18 05:30 Urine Urobilinogen 0.2 E.U./dL (<1 E.U./dL) 06/14/18 05:30 Ur Leukocyte Esterase Negative Angel/uL (NEGATIVE) 06/14/18 05:30 Urine RBC 0 - 2 /hpf (0-2) 06/14/18 05:30 Urine WBC 0 - 2 /hpf (0-6) 06/14/18 05:30 Ur Epithelial Cells 0 - 2 /hpf (0-5) 06/14/18 05:30 Urine Bacteria Occ (NEG) 06/14/18 05:30 Urine Opiates Screen Negative (NEGATIVE) 06/16/18 15:50 Urine Methadone Screen Negative (NEGATIVE) 06/16/18 15:50 Ur Barbiturates Screen Negative (NEGATIVE) 06/16/18 15:50 Ur Phencyclidine Scrn Negative (NEGATIVE) 06/16/18 15:50 Ur Amphetamines Screen Negative (NEGATIVE) 06/16/18 15:50 U Benzodiazepines Scrn Negative (NEGATIVE) 06/16/18 15:50 U Oth Cocaine Metabols Negative (NEGATIVE) 06/16/18 15:50 U Cannabinoids Screen Negative (NEGATIVE) 06/16/18 15:50 - Hospital Course Hospital Course: King Walker DO PGY1 - Internal Medicine Warrant Server - Hospital Progress Note 48 year old male with PMHx of diabetes, high cholesterol, and 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 Who is non compliant to his medications presented to [facility] ED on 06/14 w/ CC of LUE numbness/tingling, L sided facial numbness, and Headache. Patient underwent CT head in ED was initially benign however repeat CT head on 06/15 showed a 2cm subacute infarct in the R parietal lobe. Following CTA showed mural thrombus of the L subclavian artery. IR and CT surgery was consulted, and patient was initially started on ASA, Plavix, and Lovenox 70 BID ; however regimen was later changed to warfarin, and lovenox 70 BID with eventual plans to anticoagulate patient w/ INR 2-[address] Surgery; patient did not need surgical management at this time. Echo cardiogram was performed showing a LVEF of 26.3%; patient was started on Cozaar, Coreg, and Aldactone. In regards to his uncontrolled DM patient had an A1C of 11.9; Was on Levemir 15HS, and ISS High requiring 3-5U AC. He was found to have a solitary nodule in upper pole of R thyroid on CTA Head/ Neck as well; this should be followed up as outpt. Patient left AMA after being seen on on 06/18; No overnight complaints, 12 system ROS was negative. He reported he did not know he was going to be kept for this long in the hospital. Patient was pending evaluation by IR Dr. Madison. Risks of leaving AMA such as , disability, and worsening of conditions were explained to the patient. The patient was explained that he is at increased risk of clots and bleeds as his warfarin dose is sub therapeutic Patient verbalized that he is following up with a doctor on Wednesday. The patient was given the following instructions upon signing AMA Form: - Please take Coumadin 7.5 mg PO BID for 3 days. Follow up with PMD Dr Gaxiola or [facility] on Wednesday (06/20). - Take other Cardiology medications as given. You can resume your home Metformin , please follow up with PMD for diabetes medication. - Follow up with Neurology, Cardiology, Cardiothoracic surgeon in 1 week. - Return to ER for any concerns - Date & Time of H&P Date of H&P: 06/14/18 Time of H&P: 05:31 Discharge Exam - Head Exam Head Exam: ATRAUMATIC, NORMAL INSPECTION - Eye Exam Eye Exam: EOMI, PERRL. absent: Scleral icterus - ENT Exam ENT Exam: Mucous Membranes Moist - Respiratory Exam Respiratory Exam: Clear to PA & Lateral, NORMAL BREATHING PATTERN, UNREMARKABLE. absent: Rhonchi, Respiratory Distress - Cardiovascular Exam Cardiovascular Exam: REGULAR RHYTHM, RRR, +S1, +S2. absent: Systolic Murmur - GI/Abdominal Exam GI & Abdominal Exam: Normal Bowel Sounds, Unremarkable. absent: Tenderness - Extremities Exam Extremities exam: pedal pulses present (2+) - Neurological Exam Neurological exam: Alert, CN II-XII Intact, Oriented x3 Additional comments: 5/5 Gross Strength UE/LE BL No deficits appreciated - Psychiatric Exam Psychiatric exam: Normal Affect, Normal Mood - Skin Skin Exam: Dry, Intact, Normal Color, Warm Discharge Plan - Discharge Medications Prescriptions: Atorvastatin [Lipitor] 40 mg PO DIN #14 tab Carvedilol [Coreg] 3.125 mg PO BID #14 tab Losartan [Cozaar] 12.5 mg PO DAILY #7 tab Spironolactone [Aldactone] 12.5 mg PO BID #14 tab Warfarin [Coumadin] 7.5 mg PO 1800 #3 tab - Follow Up Plan Condition: FAIR Disposition: AGAINST MEDICAL ADVICE Instructions: Transient Ischemic Attack Additional Instructions: - Please take Coumadin 7.5 mg PO BID for 3 days. Follow up with PMD Dr Gaxiola or [facility] on Wednesday (06/20). - Take other Cardiology medications as given. You can resume your home Metformin , please follow up with PMD for diabetes medication. - Follow up with Neurology, Cardiology, Cardiothoracic surgeon in 1 week. - Return to ER for any concerns <Maximino Henning - Last Filed: 06/19/18 07:28> Provider - Provider Date of Admission: 06/15/18 22:10 Attending physician: Maximino Henning MD Hospital Course - Lab Results Lab Results: Most Recent Lab Values WBC 7.5 10^3/ul (4.5-11.0) 06/18/18 06:30 RBC 5.05 10^6/uL (3.5-6.1) 06/18/18 06:30 Hgb 13.7 g/dL (14.0-18.0) L 06/18/18 06:30 Hct 39.1 % (42.0-52.0) L 06/18/18 06:30 MCV 77.4 fl (80.0-105.0) L 06/18/18 06:30 MCH 27.1 pg (25.0-35.0) 06/18/18 06:30 MCHC 35.0 g/dl (31.0-37.0) 06/18/18 06:30 RDW 12.9 % (11.5-14.5) 06/18/18 06:30 Plt Count 191 10^3/uL (120.0-450.0) 06/18/18 06:30 MPV 10.6 fl (7.0-11.0) 06/18/18 06:30 Gran % 56.8 % (50.0-68.0) 06/18/18 06:30 Lymph % (Auto) 34.5 % (22.0-35.0) 06/18/18 06:30 Rincon % (Auto) 6.8 % (1.0-6.0) H 06/18/18 06:30 Eos % (Auto) 1.6 % (1.5-5.0) 06/18/18 06:30 Baso % (Auto) 0.3 % (0.0-3.0) 06/18/18 06:30 Gran # 4.28 (1.4-6.5) 06/18/18 06:30 Lymph # (Auto) 2.6 (1.2-3.4) 06/18/18 06:30 Rincon # (Auto) 0.5 (0.1-0.6) 06/18/18 06:30 Eos # (Auto) 0.1 (0.0-0.7) 06/18/18 06:30 Baso # (Auto) 0.02 K/mm3 (0.0-2.0) 06/18/18 06:30 PT 12.5 SECONDS (9.4-12.5) 06/18/18 06:30 INR 1.09 06/18/18 06:30 APTT 35.7 Seconds (25.1-36.5) 06/18/18 06:30 Sodium 141 mmol/L (132-148) 06/18/18 06:30 Potassium 3.5 mmol/L (3.6-5.0) L 06/18/18 06:30 Chloride 102 mmol/L (98-107) 06/18/18 06:30 Carbon Dioxide 30 mmol/L (21-33) 06/18/18 06:30 Anion Gap 13 (10-20) 06/18/18 06:30 BUN 13 mg/dL (7-21) 06/18/18 06:30 Creatinine 0.8 mg/dl (0.8-1.5) 06/18/18 06:30 Est GFR ( Amer) > 60 06/18/18 06:30 Est GFR (Non-Af Amer) > 60 06/18/18 06:30 POC Glucose (mg/dL) 205 mg/dL (65-110) H 06/18/18 07:27 Random Glucose 175 mg/dL (70-110) H 06/18/18 06:30 Hemoglobin A1c 11.9 % (4.2-6.5) H 06/14/18 06:10 Calcium 8.9 mg/dL (8.4-10.5) 06/18/18 06:30 Phosphorus 3.3 mg/dL (2.5-4.5) 06/14/18 06:10 Magnesium 1.8 mg/dL (1.7-2.2) 06/14/18 06:10 Total Bilirubin 0.5 mg/dL (0.2-1.3) 06/18/18 06:30 AST 40 U/L (17-59) 06/18/18 06:30 ALT 46 U/L (7-56) 06/18/18 06:30 Alkaline Phosphatase 52 U/L (38-126) 06/18/18 06:30 Troponin I < 0.01 ng/mL 06/14/18 01:50 Total Protein 6.2 g/dL (5.8-8.3) 06/18/18 06:30 Albumin 3.5 g/dL (3.0-4.8) 06/18/18 06:30 Globulin 2.7 gm/dL 06/18/18 06:30 Albumin/Globulin Ratio 1.3 (1.1-1.8) 06/18/18 06:30 Triglycerides 122 mg/dL (35-160) 06/14/18 06:10 Cholesterol 261 mg/dL (130-200) H 06/14/18 06:10 LDL Cholesterol Direct 188 mg/dL (0-129) H 06/14/18 06:10 HDL Cholesterol 35 mg/dL (29-60) 06/14/18 06:10 Vitamin B12 372 pg/mL (239-931) 06/14/18 06:10 Folate 15.1 ng/mL 06/14/18 06:10 Free T4 1.12 ng/dL (0.78-2.19) 06/14/18 06:00 TSH 3rd Generation 0.45 mIU/mL (0.46-4.68) L 06/14/18 06:10 Urine Color Light yellow (YELLOW) 06/14/18 05:30 Urine Appearance Clear (CLEAR) 06/14/18 05:30 Urine pH 6.5 (4.7-8.0) 06/14/18 05:30 Ur Specific Broughton 1.020 (1.005-1.035) 06/14/18 05:30 Urine Protein 100 mg/dL (<30 mg/dL) H 06/14/18 05:30 Urine Glucose (UA) >=1000 mg/dL (NEGATIVE) 06/14/18 05:30 Urine Ketones 40 mg/dL (NEGATIVE) H 06/14/18 05:30 Urine Blood Trace-lysed (NEGATIVE) H 06/14/18 05:30 Urine Nitrate Negative (NEGATIVE) 06/14/18 05:30 Urine Bilirubin Negative (NEGATIVE) 06/14/18 05:30 Urine Urobilinogen 0.2 E.U./dL (<1 E.U./dL) 06/14/18 05:30 Ur Leukocyte Esterase Negative Angel/uL (NEGATIVE) 06/14/18 05:30 Urine RBC 0 - 2 /hpf (0-2) 06/14/18 05:30 Urine WBC 0 - 2 /hpf (0-6) 06/14/18 05:30 Ur Epithelial Cells 0 - 2 /hpf (0-5) 06/14/18 05:30 Urine Bacteria Occ (NEG) 06/14/18 05:30 Urine Opiates Screen Negative (NEGATIVE) 06/16/18 15:50 Urine Methadone Screen Negative (NEGATIVE) 06/16/18 15:50 Ur Barbiturates Screen Negative (NEGATIVE) 06/16/18 15:50 Ur Phencyclidine Scrn Negative (NEGATIVE) 06/16/18 15:50 Ur Amphetamines Screen Negative (NEGATIVE) 06/16/18 15:50 U Benzodiazepines Scrn Negative (NEGATIVE) 06/16/18 15:50 U Oth Cocaine Metabols Negative (NEGATIVE) 06/16/18 15:50 U Cannabinoids Screen Negative (NEGATIVE) 06/16/18 15:50 Attending/Attestation - Attestation I have personally seen and examined this patient.: Yes I have fully participated in the care of the patient.: Yes I have reviewed all pertinent clinical information, including history, physical exam and plan: Yes Notes (Text): 06/18/18 48 year old male with past medical history of diabetes, dyslipidemia, and bradycardia s/p PPM who presented with complaint of left hand numbness. Initial CT head was negative but repeat CT head showed acute infarct in the right parietal lobe. CTA head and neck showed left subclavian artery thrombus. 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 Echocardiogram showed severely impaired EF 26%. Patient was started on lovenox and coumadin for bridging. Patient was also on coreg, losartan adn aldactone. He was being followed by cardiology and neurology. CT surgery also recommended outpatient follow up. INR this morning was still subtherapeutic. Today patient signed out AMA. He was explained extensively his risks of signing out today. He states he will follow up with his pmd/teaching pastor this Wednesday. Instructed to continued with coumadin 7.5 mg at evening and repeat INR with pmd/ cardiology on Wednesday. Patient also given number for [facility] clinic. Emphasized importance of medication and outpatient follow up compliance. Maximino Henning MD Hospitalist.
== END 2018-06-18 11:31 | disposition left against medical advice (07) | DRG 64 ==
LOC: ED 01:35 → ERH 04:31 → 2RNO 10:44 → OBSVTOIN 06-15 22:10
PROVIDERS: ADMIT Hospitalist; ATTEND Internal Medicine
DX: I63.9 Cerebral infarction, unspecified (principal); I50.21 Acute systolic (congestive) heart failure; I42.9 Cardiomyopathy, unspecified; I74.8 Embolism and thrombosis of other arteries; E11.42 Type 2 diabetes mellitus with diabetic polyneuropathy; G56.92 Unspecified mononeuropathy of left upper limb; E11.65 Type 2 diabetes mellitus with hyperglycemia; E78.00 Pure hypercholesterolemia, unspecified; E78.5 Hyperlipidemia, unspecified; D72.829 Elevated white blood cell count, unspecified; G89.29 Other chronic pain; K59.00 Constipation, unspecified; Z79.02 Long term (current) use of antithrombotics/antiplatelets; Z79.82 Long term (current) use of aspirin; Z79.4 Long term (current) use of insulin; Z83.3 Family history of diabetes mellitus; Z87.891 Personal history of nicotine dependence; Z91.14 Patient's other noncompliance with medication regimen; Z91.19 Patient's noncompliance with other medical treatment and regimen; Z95.0 Presence of cardiac pacemaker